=== PATIENT | female | born 1930 | race Caucasian/White ===

== ENCOUNTER 2017-04-16 20:40 | Inpatient (IN) | payer MEDICARE, OTHER, MEDICAID ==
[2017-04-16] MEDS ORDERED: Sodium Chloride 0.9% 10 ML Syringe FLUSH PRN ×2 (20:51→23:41)
--- NOTE | 2017-04-16 21:00 | EDM.PDOC ---
ED HPI GENERAL MEDICAL PROBLEM - General Chief Complaint: Cardiovascular Problem Stated Complaint: [facility] Time Seen by Provider: 04/16/17 20:46 Source of Information: Reports: Patient History Limitations: Reports: No Limitations - History of Present Illness INITIAL COMMENTS - FREE TEXT/NARRATIVE: Patient is a 86-year-old female from local alf complaining of hypoxia with laying flat. Upon admission to the ED patients on a simple mask at 6 L/m 79 % on room air. She is short of breath with no significant respiratory distress noted. Symptoms started today and progressively gotten worse. She denies any chest pain, productive cough, wheezing, developing, fever, nausea vomiting, painful urination, or any additional complaints. Of note she did fall a few days prior injuring the left lower leg. She did have x-rays obtained did not reveal any bony abnormalities. There is significant swelling present. Pain with palpation of the posterior calf. Decreased range of motion noted. She is normally on O2 NC 4lpm chronically. Patient's past medical history includes coronary disease, diabetes type 2, congestive heart failure, hypertension, GERD, hypercholesterolemia, anxiety/ depression Current medications: Unclear at this time still searching for current med list. - Related Data Allergies Allergy/AdvReac Type Severity Reaction Status Date / Time cefazolin Allergy Cannot Verified 04/17/17 00:46 Remember cefazolin sodium [From Anc] Allergy Cannot Verified 04/17/17 00:46 Remember iodine Allergy Cannot Verified 04/17/17 00:46 Remember iv dye Allergy Cannot Uncoded 12/21/13 08:46 Remember Home Meds: Home Meds Aspirin [Adult Low Dose Aspirin EC] 81 mg PO DAILY 12/21/13 [History] Ezetimibe [Zetia] 10 mg PO DAILY 12/21/13 [History] Furosemide [Lasix] 40 mg PO DAILY 12/21/13 [History] Metoprolol Tartrate 50 mg PO BID 12/21/13 [History] Sulfamethoxazole/Trimethoprim [Sulfamethoxazole-Tmp Ss Tablet] 1 each PO BID 01/27 [History] atorvaSTATin [Lipitor] 40 mg PO BEDTIME 12/21/13 [History] Lisinopril 5 mg PO DAILY #30 tablet 12/23/13 [Rx] Sertraline [Zoloft] 75 mg PO DAILY 06/03/15 [History] Acetaminophen [Acetaminophen Extra Strength] 500 mg PO Q4H PRN 04/16/17 [History ] Carboxymethylcellulose Sodium [Refresh Tears] 2 drop EYEBOTH QID 04/16/17 [ History] Cyanocobalamin (Vitamin B-12) [Cyanocobalamin Injection] 1,000 mcg IM WEEKLY 08/02 [History] Docusate Sodium/Sennosides [Senna Plus] 1 tab PO DAILY PRN 04/16/17 [History] Fish Oil/[place]-3 Fatty Acids [Fish Oil 1,000 MG] 1,000 mg PO BID 04/16/17 [ History] Mineral Oil/Petrolatum,White [Genteal Pm Ointment] 1 dose EYEBOTH BEDTIME [History] Ondansetron [Zofran ODT] 4 mg PO Q8H PRN 04/16/17 [History] Vit C/E/Zn/Coppr/Lutein/Zeaxan [Preservision Areds 2 Softgel] 1 cap PO BID 04/16 [History] Albuterol/Ipratropium [DuoNeb 3.0-0.5 MG/3 ML] 3 ml NEB Q4H PRN #1 box 04/18/17 [Rx] LORazepam [Ativan] 0.5 mg PO Q4H PRN #30 tablet 04/18/17 [Rx] Morphine [Morphine 10 MG/5 ML] 5 mg PO Q2H #120 ml 04/18/17 [Rx] Social & Family History - Tobacco Use Years of Tobacco use: 5 Used Tobacco, but Quit: Yes Month Tobacco Last Used: - Alcohol Use Days Per Week of Alcohol Use: 0 - Recreational Drug Use Recreational Drug Use: No ED ROS GENERAL - Review of Systems Review Of Systems: See Below Constitutional: Denies: Fever, Chills, Decreased Appetite HEENT: Reports: No Symptoms Respiratory: Reports: Shortness of Breath. Denies: Wheezing, Pleuritic Chest Pain, Cough, Sputum Cardiovascular: Reports: Dyspnea on Exertion. Denies: Chest Pain, Palpitations GI/Abdominal: Denies: Abdominal Pain, Constipation, Diarrhea, Nausea, Vomiting : Reports: No Symptoms Musculoskeletal: Reports: Leg Pain (Left lower leg pain), Foot Pain (Left foot) , Joint Pain (Left ankle) Skin: Reports: Other (Lower leg has faint increased redness to the anterior aspect, ecchymosis noted to the lateral aspect of the ankle and foot.) Neurological: Reports: No Symptoms ED EXAM, GENERAL - Physical Exam Exam: See Below Exam Limited By: No Limitations General Appearance: Alert, WD/WN, Mild Distress Eye Exam: Bilateral Eye: Normal Inspection Ears: Hearing Grossly Normal Nose: Normal Inspection Throat/Mouth: Normal Voice, No Airway Compromise, Other (Oral mucosa is moist) Neck: Normal Inspection, Supple Respiratory/Chest: No Accessory Muscle Use, Chest Non-Tender, Other (Increased respiratory rate, distant lung sounds, with no adventitious lung sounds present. ) Cardiovascular: Normal Peripheral Pulses, Regular Rate, Rhythm, Systolic Murmur Peripheral Pulses: 2+: Radial (L), Radial (R) GI/Abdominal: Normal Bowel Sounds, Soft, Non-Tender, No Organomegaly, No Distention Extremities: Other (Left lower leg: Increased swelling, pain with palpation, hematoma to the posterior calf, mild redness anteriorly, ecchymosis to the lateral ankle and foot. Decreased range of motion noted.) Neurological: Alert, Oriented, CN II-XII Intact, Normal Cognition, No Motor/ Sensory Deficits Psychiatric: Normal Affect, Normal Mood Skin Exam: Warm, Dry Course - Vital Signs Last Recorded V/S: Last Vital Signs Temp 97.5 F 04/17/17 23:40 Pulse 69 04/17/17 23:40 Resp 20 04/17/17 23:40 BP 131/98 H 04/17/17 23:40 Pulse Ox 90 L 04/17/17 23:40 - Orders/Labs/Meds Labs: Laboratory Tests 04/16/17 04/16/17 04/16/17 Range/Units 21:16 21:16 21:16 WBC 4.61 (3.98-10.04) K/mm3 RBC 3.81 L (3.98-5.22) M/mm3 Hgb 9.9 L (11.2-15.7) gm/L Hct 36.8 (34.1-44.9) % MCV 96.6 H (79.4-94.8) fl MCH 26.0 (25.6-32.2) pg MCHC 26.9 L (32.2-35.5) g/dl RDW Std Deviation 61.0 H (36.4-46.3) fL Plt Count 159 L (182-369) K/mm3 MPV 11.5 (9.4-12.3) fl Neut % (Auto) 71.6 H (34.0-71.1) % Lymph % (Auto) 12.8 L (19.3-51.7) % [place] % (Auto) 14.1 H (4.7-12.5) % Eos % (Auto) 1.1 (0.7-5.8) Baso % (Auto) 0.2 (0.1-1.2) % Neut # (Auto) 3.30 (1.56-6.13) K/mm3 Lymph # (Auto) 0.59 L (1.18-3.74) K/mm3 [place] # (Auto) 0.65 H (0.24-0.36) K/mm3 Eos # (Auto) 0.05 (0.04-0.36) K/mm3 Baso # (Auto) 0.01 (0.01-0.08) K/mm3 Manual Slide Review Abnormal smear PT 11.6 (8.0-13.0) SECONDS INR 1.06 APTT 26 (22-36) SECONDS D-Dimer, Quantitative (0.19-0.59) mg/L Sodium 141 (136-145) mEq/L Potassium 5.7 H (3.5-5.1) mEq/L Chloride 99 (98-107) mEq/L Carbon Dioxide 43 H* (21-32) mEq/L Anion Gap 4.7 L (5-15) BUN 38 H (7-18) mg/dL Creatinine 1.9 H (0.55-1.02) mg/dL Est Cr Clr Drug Dosing 18.35 mL/min Estimated GFR (MDRD) 25 (>60) mL/min BUN/Creatinine Ratio 20.0 H (14-18) Glucose 104 (83-115) mg/dL Calcium 8.9 (8.5-10.1) mg/dL Total Bilirubin 0.5 (0.2-1.0) mg/dL AST 26 (15-37) U/L ALT 21 (14-59) U/L Alkaline Phosphatase 84 (46-116) U/L CK-MB (CK-2) (0-3.6) ng/ml Troponin I 0.064 H* (0.00-0.056) ng/mL C-Reactive Protein < 0.2 (<1.0) mg/dL NT-Pro-B Natriuret Pep 91093 H (0-450) pg/mL Total Protein 6.3 L (6.4-8.2) g/dl Albumin 2.9 L (3.4-5.0) g/dl Globulin 3.4 gm/dL Albumin/Globulin Ratio 0.9 L (1-2) 04/16/17 04/16/17 04/16/17 Range/Units 21:16 23:58 23:58 WBC (3.98-10.04) K/mm3 RBC (3.98-5.22) M/mm3 Hgb (11.2-15.7) gm/L Hct (34.1-44.9) % MCV (79.4-94.8) fl MCH (25.6-32.2) pg MCHC (32.2-35.5) g/dl RDW Std Deviation (36.4-46.3) fL Plt Count (182-369) K/mm3 MPV (9.4-12.3) fl Neut % (Auto) (34.0-71.1) % Lymph % (Auto) (19.3-51.7) % [place] % (Auto) (4.7-12.5) % Eos % (Auto) (0.7-5.8) Baso % (Auto) (0.1-1.2) % Neut # (Auto) (1.56-6.13) K/mm3 Lymph # (Auto) (1.18-3.74) K/mm3 [place] # (Auto) (0.24-0.36) K/mm3 Eos # (Auto) (0.04-0.36) K/mm3 Baso # (Auto) (0.01-0.08) K/mm3 Manual Slide Review PT (8.0-13.0) SECONDS INR APTT (22-36) SECONDS D-Dimer, Quantitative 3.13 H (0.19-0.59) mg/L Sodium (136-145) mEq/L Potassium (3.5-5.1) mEq/L Chloride (98-107) mEq/L Carbon Dioxide (21-32) mEq/L Anion Gap (5-15) BUN (7-18) mg/dL Creatinine (0.55-1.02) mg/dL Est Cr Clr Drug Dosing mL/min Estimated GFR (MDRD) (>60) mL/min BUN/Creatinine Ratio (14-18) Glucose (83-115) mg/dL Calcium (8.5-10.1) mg/dL Total Bilirubin (0.2-1.0) mg/dL AST (15-37) U/L ALT (14-59) U/L Alkaline Phosphatase (46-116) U/L CK-MB (CK-2) 3.9 H (0-3.6) ng/ml Troponin I 0.085 H* (0.00-0.056) ng/mL C-Reactive Protein (<1.0) mg/dL NT-Pro-B Natriuret Pep (0-450) pg/mL Total Protein (6.4-8.2) g/dl Albumin (3.4-5.0) g/dl Globulin gm/dL Albumin/Globulin Ratio (1-2) Meds: Medications Discontinued Medications Generic Name Dose Route Start Last Admin Trade Name Freq PRN Reason Stop Dose Admin Acetaminophen 650 mg 04/16/17 23:41 Tylenol PO Q4H PRN Pain (Mild 1-3)/fever Hydrocodone Bitart/Acetaminophen 1 tab 04/16/17 23:41 [place] 325-5 Mg PO Q4H PRN Pain (moderate 4-6) Albuterol/Ipratropium 3 ml 04/16/17 23:46 Duoneb 3.0-0.5 Mg/3 Ml NEB Q4H PRN Shortness Of Breath/wheezing Artificial Tears 0 ml 04/17/17 09:00 04/18/17 14:53 Isopto Tears 0.5% Ophth Soln EYEBOTH Not Given QID BEBO Artificial Tears 0 gm 04/17/17 21:00 04/17/17 20:47 Artificial Tears EYEBOTH 1 applic BEDTIME BEBO Administration Aspirin 81 mg 04/17/17 09:00 04/18/17 09:33 Halfprin PO Not Given DAILY BEBO Bisacodyl 5 mg 04/16/17 23:46 Dulcolax PO DAILY PRN Constipation Diphtheria/Tetanus/Acell Pertussis 0.5 ml 04/17/17 10:00 Adacel IM 10/02/17 10:01 .ONCE ONE Docusate Sodium 100 mg 04/16/17 23:46 Colace PO BID PRN Constipation Ezetimibe 10 mg 04/17/17 09:00 04/18/17 09:33 Zetia PO Not Given DAILY BEBO Furosemide 40 mg 04/16/17 22:13 04/16/17 22:56 Lasix IVPUSH 04/16/17 22:14 Not Given NOW ONE Furosemide 80 mg 04/16/17 22:17 04/16/17 22:56 Lasix PO 04/16/17 22:18 Not Given ONETIME ONE Furosemide Confirm 04/16/17 22:28 04/16/17 22:56 Lasix Administered 04/16/17 22:29 Not Given Dose 80 mg .ROUTE .STK-MED ONE Furosemide 80 mg 04/16/17 22:55 04/16/17 22:56 Lasix IVPUSH 04/16/17 22:56 80 mg NOW ONE Administration Heparin Sodium (Porcine) 5,000 units 04/17/17 19:30 04/17/17 20:00 Heparin Sodium IV 04/17/17 19:31 Not Given ONETIME ONE Heparin Sodium (Porcine) 1,000 - 2,000 units 04/17/17 19:23 Heparin Sodium IV ASDIRECTED PRN SEE HEPARIN PROTOCOL Hydralazine HCl 10 mg 04/16/17 23:48 Apresoline IVPUSH Q4H PRN Hypertension Hydrochlorothiazide 12.5 mg 04/16/17 23:55 04/17/17 00:50 Hydrochlorothiazide PO 04/16/17 23:56 12.5 mg NOW ONE Administration Hydrochlorothiazide 12.5 mg 04/17/17 09:00 04/18/17 05:16 Hydrochlorothiazide PO Not Given BIDDIURETIC BEBO Hydromorphone HCl 0.25 mg 04/16/17 23:41 Dilaudid IVPUSH Q2H PRN Pain (severe 7-10) Promethazine HCl 12.5 mg/ 50.5 mls @ 100 mls/hr 04/16/17 23:41 Sodium Chloride IV Q6H PRN Nausea/Vomiting Furosemide 100 mg/ Sodium 100 mls @ 2 mls/hr 04/16/17 23:45 04/17/17 00:50 Chloride IV 04/18/17 21:00 2 mls/hr TITRATE BEBO Administration Protocol Heparin Sodium/Dextrose 25,000 units in 500 mls @ 20 mls/hr 04/17/17 19:00 Heparin 25,000 Units In D5w 500 Ml IV TITRATE BEBO Protocol Lorazepam 0.25 mg 04/16/17 23:41 Ativan IV Q6H PRN Anxiety Lorazepam 2 mg 04/16/17 23:48 Ativan IVPUSH Q4H PRN Seizures Lorazepam 0.5 mg 04/17/17 20:29 Ativan IV Q4H PRN Anxiety Magnesium Sulfate 0 dose 04/16/17 23:45 Pharmacy To Dose - Magnesium Replacement .XX ASDIRECTED PRN RX TO WATCH MAG LEVELS Metoprolol Tartrate 5 mg 04/16/17 23:48 Lopressor IVPUSH Q4H PRN Tachycardia Metoprolol Tartrate 50 mg 04/17/17 09:00 Lopressor PO BID BEBO Metoprolol Tartrate 25 mg 04/17/17 09:00 04/18/17 09:33 Lopressor PO Not Given BID BEBO Morphine Sulfate 1 mg 04/17/17 20:30 Morphine IVPUSH Q4H PRN Other Ondansetron HCl 4 mg 04/16/17 23:41 Zofran IV Q6H PRN Nausea/Vomiting Polyethylene Glycol 17 gm 04/16/17 23:46 Miralax PO DAILY PRN Constipation Potassium Chloride 0 dose 04/16/17 23:45 Pharmacy To Dose - Potassium Replacement .XX ASDIRECTED PRN RX TO WATCH K LEVELS Rosuvastatin Calcium 10 mg 04/17/17 21:00 04/18/17 00:00 Crestor PO Not Given BEDTIME BEBO Senna/Docusate Sodium 1 tab 04/16/17 23:46 Senna Plus PO BID PRN Constipation Sertraline HCl 75 mg 04/17/17 09:00 04/18/17 09:33 Zoloft PO Not Given DAILY BEBO Sodium Chloride 10 ml 04/16/17 20:51 04/16/17 21:23 Saline Flush FLUSH 10 ml ASDIRECTED PRN Administration Keep Vein Open Sodium Chloride 10 ml 04/16/17 23:41 Saline Flush FLUSH ASDIRECTED PRN Keep Vein Open Temazepam 7.5 mg 04/16/17 23:46 Restoril PO BEDTIME PRN Sleep - Re-Assessments/Exams Free Text/Narrative Re-Assessment/Exam: Patient is on nasal cannula 6 L/m at 96% O2 saturation. IV will be established. Initial labs and studies include CBC, chem 14, CRP, d- dimer, PTT/INR, proBNP, coag studies, troponin, chest x-ray one view, and EKG. EKG revealed: Sinus bradycardia at a rate of 56 with a right bundle branch block with no acute ST changes noted. CXR revealed: white out of the left lower lobe concerning for CHF. Right sided pleural effusion. Labs reveal: White blood cell count 4.61, hemoglobin 9.9, platelet count 159, coags within normal limits, d-dimer 3.13, sodium 141, potassium 5.7, CO2 43, AG 4.7, creatinine 1.9, glucose 104, LFTs within normal limits, troponin 0.064, CRP less than 0.2, and proBNP 12,855.. Troponin leak most likely related to the congestive heart failure. Second troponin will be obtained 3 hours from previous draw. D-dimer elevated 3.13. Ultrasound the left lower leg will be obtained. Patient has swelling to the left lower leg secondary to recent fall. Pain to the posterior calf with large hematoma Will rule out DVT. Ordered Lasix 80 mg IVP. Trevñio will be placed. MCG placed for admission. Hypoxia and exacerbation of CHF. O2 stats 100% on 6 L. This was turned down to 5 L and the patient remainder 100% . This was decreased to 4lpm. She is chronically on 4 L of O2 via nasal cannula at the alf. 1133 Ultrasound duplex left lower extremity veins: No definitive deep venous thrombosis is identified. Limited assessment of distal femoral vein and popliteal vein. 1138 Shared results of US with Dr. Andino. Patient will be [facility] to [facility] with telemetry. Admission order placed. Will hold off in obtaining CT of the chest per request of to evaluate the severity of pleural effusion. I do not believe patient will tolerate this. Departure - Departure Time of Disposition: 23:56 Disposition: Admitted As Inpatient 66 Reason for Transfer *Q: Other Condition: Fair Clinical Impression: CHF, Congestive heart failure, Hypoxia, Hyperkalemia, Carbon dioxide retention , Elevated troponin Acute exacerbation of congestive heart failure Qualifiers: Congestive heart failure type: diastolic Qualified Code(s): I50.33 - Acute on chronic diastolic (congestive) heart failure Chronic renal failure Qualifiers: Chronic kidney disease stage: unspecified stage Qualified Code(s): N18.9 - Chronic kidney disease, unspecified
[2017-04-16] MEDS ORDERED: Furosemide 40 MG/4 ML VIAL IVPUSH ONE ×2 (22:13→22:55)
[2017-04-16] MEDS ORDERED: Furosemide 80 MG Tab PO ONE (22:17)
[2017-04-16] MEDS ORDERED: Furosemide 40 MG/4 ML VIAL ONE (22:28)
[2017-04-16] MEDS ORDERED: LORazepam 2 MG/ML MDV IV PRN (23:41)
[2017-04-16] MEDS ORDERED: HYDROmorphone 0.5 MG/0.5 ML Syringe IVPUSH PRN (23:41)
[2017-04-16] MEDS ORDERED: Ondansetron 4 MG/2 ML SDV IV PRN (23:41)
[2017-04-16] MEDS ORDERED: Acetaminophen/HYDROcodone 325-5 MG Tab PO PRN (23:41)
[2017-04-16] MEDS ORDERED: Promethazine 12.5 MG in Sodium Chloride 0.9% 50 ML IV PRN (23:41)
[2017-04-16] MEDS ORDERED: Acetaminophen 325 MG Tab PO PRN (23:41)
[2017-04-16] MEDS ORDERED: Furosemide 100 MG in Sodium Chloride 0.9% 90 ML IV SCH (23:45)
[2017-04-16] MEDS ORDERED: Polyethylene Glycol 3350 Powder 17 GM Packet PO PRN (23:46)
[2017-04-16] MEDS ORDERED: Albuterol/Ipratropium 3.0-0.5 MG/3 ML Neb Soln NEB PRN (23:46)
[2017-04-16] MEDS ORDERED: Docusate Sodium 100 MG Cap PO PRN (23:46)
[2017-04-16] MEDS ORDERED: Bisacodyl 5 MG Tab PO PRN (23:46)
[2017-04-16] MEDS ORDERED: Temazepam 7.5 MG Cap PO PRN (23:46)
[2017-04-16] MEDS ORDERED: hydrALAZINE 20 MG/ML SDV IVPUSH PRN (23:48)
[2017-04-16] MEDS ORDERED: LORazepam 2 MG/ML MDV IVPUSH PRN (23:48)
[2017-04-16] MEDS ORDERED: Metoprolol Tartrate 5 MG/5 ML SDV IVPUSH PRN (23:48)
--- NOTE | 2017-04-16 23:54 | PCM.HP ---
H&P History of Present Illness - General Date of Service: 04/16/17 Admit Problem/Dx: Admission Diagnosis/Problem Admission Diagnosis/Problem CHF, Congestive heart failure Source of Information: Patient, Old Records, Provider, RN Notes Reviewed History Limitations: Reports: Respiratory Distress - History of Present Illness Initial Comments - Free Text/Narative: This is an 86-year-old elderly white female with past medical history of coronary artery disease started status post stent placement 2, hypertension, hyperlipidemia, GERD, osteoarthritis/DJD, and chronic anemia, who [facility] with complaints of severe shortness of breath and difficulty laying flat. Her symptoms started today and has progressively gotten worse. She denies any chest pain, no cough, no wheezing , no fever or chills, and no other associated symptoms. Patient carries a history of COPD and chronic respiratory failure on 3-4 L supplemental O2. She denies any recent changes on her home medications. She has been compliant with her supplemental O2. Patient reports recent fall prior to left lower leg complaints. She reports edema, erythema, pain with palpation along with decrease range of motion. Her most recent hospitalization with similar presentation was way back in 2013. On presentation to the emergency department, she was on 6 L simple face mask and was found sating at 79%. She appears tachypneic with respiratory rate as high as 21. Her initial workup in the emergency department shows a CBC remarkable for RBC of 3.81, hemoglobin of 9.1, MCV of 96.6, MCHC of 26.9, RDW of 61, platelet of 159, neutrophils of 71.6%, lymphocytes of 12.8%, and monocytes of 14.1%. Her d-dimer level is at 3.13. Her chemistry is remarkable for potassium 5.7, carbon dioxide of 43, anion gap of 4.7, BUN of 38, creatinine of 1.9, troponin 1 of 0.064, [place] [address], total protein of 6.3, and albumin of 2.9. Her chest x-ray shows blunting of costophrenic angles, pulmonary congestion, bilateral pleural effusion, and significant aortic calcification. Patient is being admitted primarily for medical management of acute on chronic respiratory failure and acute on chronic heart failure. She is DNR. - Related Data Allergies/Adverse Reactions: Allergies Allergy/AdvReac Type Severity Reaction Status Date / Time cefazolin Allergy Cannot Verified 04/17/17 00:46 Remember cefazolin sodium [From Ancef] Allergy Cannot Verified 04/17/17 00:46 Remember iodine Allergy Cannot Verified 04/17/17 00:46 Remember iv dye Allergy Cannot Uncoded 12/21/13 08:46 Remember Home Medications: Home Meds Aspirin [Adult Low Dose Aspirin EC] 81 mg PO DAILY 12/21/13 [History] Ezetimibe [Zetia] 10 mg PO DAILY 12/21/13 [History] Furosemide [Lasix] 40 mg PO DAILY 12/21/13 [History] Metoprolol Tartrate 50 mg PO BID 12/21/13 [History] Sulfamethoxazole/Trimethoprim [Sulfamethoxazole-Tmp Ss Tablet] 1 each PO BID 01/27 [History] atorvaSTATin [Lipitor] 40 mg PO BEDTIME 12/21/13 [History] Lisinopril 5 mg PO DAILY #30 tablet 12/23/13 [Rx] Sertraline [Zoloft] 75 mg PO DAILY 06/03/15 [History] Acetaminophen [Acetaminophen Extra Strength] 500 mg PO Q4H PRN 04/16/17 [History ] Carboxymethylcellulose Sodium [Refresh Tears] 2 drop EYEBOTH QID 04/16/17 [ History] Cyanocobalamin (Vitamin B-12) [Cyanocobalamin Injection] 1,000 mcg IM WEEKLY 08/02 [History] Docusate Sodium/Sennosides [Senna Plus] 1 tab PO DAILY PRN 04/16/17 [History] Fish Oil/Drumright-3 Fatty Acids [Fish Oil 1,000 MG] 1,000 mg PO BID 04/16/17 [ History] Mineral Oil/Petrolatum,White [Genteal Pm Ointment] 1 dose EYEBOTH BEDTIME [History] Ondansetron [Zofran ODT] 4 mg PO Q8H PRN 04/16/17 [History] Vit C/E/Zn/Coppr/Lutein/Zeaxan [Preservision Areds 2 Softgel] 1 cap PO BID 04/16 [History] Past Medical History HEENT History: Reports: Macular Degeneration, Other (See Below) Other HEENT History: hypertensive retinopathy Cardiovascular History: Reports: High Cholesterol, Hypertension, Other (See Below) Other Cardiovascular History: peripheral vascular disease;ishemic heart disease Respiratory History: Reports: COPD, Other (See Below) Other Respiratory History: respiratory failure Gastrointestinal History: Reports: GERD Musculoskeletal History: Reports: Osteoarthritis Psychiatric History: Reports: Depression Hematologic History: Reports: Anemia Social & Family History - Tobacco Use Smoking Status *Q: Never Smoker Years of Tobacco use: 5 Used Tobacco, but Quit: Yes Month Tobacco Last Used: - Caffeine Use Caffeine Use: Reports: Coffee - Alcohol Use Days Per Week of Alcohol Use: 0 - Recreational Drug Use Recreational Drug Use: No H&P Review of Systems - Review of Systems: Review Of Systems: See Below General: Denies: Fever, Chills, Fatigue, Decreased Appetite HEENT: Reports: No Symptoms Pulmonary: Reports: Shortness of Breath. Denies: Wheezing, Pleuritic Chest Pain , Cough Cardiovascular: Reports: Dyspnea on Exertion, Edema. Denies: Chest Pain, Lightheadedness, Syncope Gastrointestinal: Denies: Abdominal Pain, Constipation, Diarrhea, Nausea, Vomiting Genitourinary: Reports: No Symptoms Musculoskeletal: Reports: Leg Pain (left lower leg), Foot Pain (left), Joint Pain (left ankle) Skin: Reports: Bruising (on lateral aspect of the ankle and foot), Change in Color (mild erythema on anterior aspect of left lower leg) Psychiatric: Denies: Confusion, Anxiety, Agitation, Hallucinations Neurological: Reports: Gait Disturbance. Denies: Confusion, Weakness Hematologic/Lymphatic: Reports: Anemia, Easy Bruising. Denies: Easy Bleeding Immunologic: Reports: No Symptoms Exam - Exam Exam: See Below - Vital Signs Vital Signs: Last Vital Signs Temp 36.1 C 04/16/17 20:47 Pulse 57 L 04/16/17 20:47 Resp 21 H 04/16/17 20:47 BP 113/71 04/16/17 20:47 Pulse Ox 99 04/16/17 20:47 Weight: 86.183 kg - Exam General: Alert, Cooperative, Mild Distress HEENT: Conjunctiva Clear, Hearing Intact, Mucosa Moist & [place], Nares Patent, Normal Nasal Septum, Pupils Equal, Pupils Reactive Neck: Supple, Trachea Midline, Full Range of Motion, JVD, Other (No accessory muscle use) Lungs: Decreased Breath Sounds, Other ([place] to percussion ). No: Normal Respiratory Effort Cardiovascular: Regular Rate, Regular Rhythm, Systolic Murmur GI/Abdominal Exam: Normal Bowel Sounds, Soft, Non-Tender, No Organomegaly, No Distention (Female) Exam: Other (indwelling esquivel catheter) Rectal (Female) Exam: Deferred Back Exam: Normal Inspection, Decreased Range of Motion Extremities: Limited Range of Motion, Increased Warmth, Other (Left Lower leg: edema, erythema on anterior aspect, pain with palpation, ecchymosis on lateral ankle and foot, and hematoma on posterior calf). No: Normal Inspection, [place] s Sign Skin: Warm, Dry, Intact, Ecchymosis Skin Alteration Location (Drawings Not To Scale): 1 - ecchymosis 2 - Hematoma 3 - mild eryhthema Neuro Extensive - Mental Status: Oriented x3, Normal Cognition, Memory Intact Neuro Extensive - Motor, Sensory, Reflexes: CN II-XII Intact (very limited but grossly intact), Abnormal Gait Psychiatric: Alert, Normal Affect, Normal Mood - Patient Data Lab Results Last 24 hrs: Laboratory Results - last 24 hr 04/16/17 04/16/17 04/16/17 Range/Units 21:16 21:16 21:16 WBC 4.61 (3.98-10.04) K/mm3 RBC 3.81 L (3.98-5.22) M/mm3 Hgb 9.9 L (11.2-15.7) gm/L Hct 36.8 (34.1-44.9) % MCV 96.6 H (79.4-94.8) fl MCH 26.0 (25.6-32.2) pg MCHC 26.9 L (32.2-35.5) g/dl RDW Std Deviation 61.0 H (36.4-46.3) fL Plt Count 159 L (182-369) K/mm3 MPV 11.5 (9.4-12.3) fl Neut % (Auto) 71.6 H (34.0-71.1) % Lymph % (Auto) 12.8 L (19.3-51.7) % [place] % (Auto) 14.1 H (4.7-12.5) % Eos % (Auto) 1.1 (0.7-5.8) Baso % (Auto) 0.2 (0.1-1.2) % Neut # (Auto) 3.30 (1.56-6.13) K/mm3 Lymph # (Auto) 0.59 L (1.18-3.74) K/mm3 [place] # (Auto) 0.65 H (0.24-0.36) K/mm3 Eos # (Auto) 0.05 (0.04-0.36) K/mm3 Baso # (Auto) 0.01 (0.01-0.08) K/mm3 Manual Slide Review Abnormal smear PT 11.6 (8.0-13.0) SECONDS INR 1.06 APTT 26 (22-36) SECONDS D-Dimer, Quantitative (0.19-0.59) mg/L Sodium 141 (136-145) mEq/L Potassium 5.7 H (3.5-5.1) mEq/L Chloride 99 (98-107) mEq/L Carbon Dioxide 43 H* (21-32) mEq/L Anion Gap 4.7 L (5-15) BUN 38 H (7-18) mg/dL Creatinine 1.9 H (0.55-1.02) mg/dL Est Cr Clr Drug Dosing 18.35 mL/min Estimated GFR (MDRD) 25 (>60) mL/min BUN/Creatinine Ratio 20.0 H (14-18) Glucose 104 (83-115) mg/dL Calcium 8.9 (8.5-10.1) mg/dL Total Bilirubin 0.5 (0.2-1.0) mg/dL AST 26 (15-37) U/L ALT 21 (14-59) U/L Alkaline Phosphatase 84 (46-116) U/L Troponin I 0.064 H* (0.00-0.056) ng/mL C-Reactive Protein < 0.2 (<1.0) mg/dL NT-Pro-B Natriuret Pep 66364 H (0-450) pg/mL Total Protein 6.3 L (6.4-8.2) g/dl Albumin 2.9 L (3.4-5.0) g/dl Globulin 3.4 gm/dL Albumin/Globulin Ratio 0.9 L (1-2) 10/01/17 Range/Units 21:16 WBC (3.98-10.04) K/mm3 RBC (3.98-5.22) M/mm3 Hgb (11.2-15.7) gm/L Hct (34.1-44.9) % MCV (79.4-94.8) fl MCH (25.6-32.2) pg MCHC (32.2-35.5) g/dl RDW Std Deviation (36.4-46.3) fL Plt Count (182-369) K/mm3 MPV (9.4-12.3) fl Neut % (Auto) (34.0-71.1) % Lymph % (Auto) (19.3-51.7) % [place] % (Auto) (4.7-12.5) % Eos % (Auto) (0.7-5.8) Baso % (Auto) (0.1-1.2) % Neut # (Auto) (1.56-6.13) K/mm3 Lymph # (Auto) (1.18-3.74) K/mm3 [place] # (Auto) (0.24-0.36) K/mm3 Eos # (Auto) (0.04-0.36) K/mm3 Baso # (Auto) (0.01-0.08) K/mm3 Manual Slide Review PT (8.0-13.0) SECONDS INR APTT (22-36) SECONDS D-Dimer, Quantitative 3.13 H (0.19-0.59) mg/L Sodium (136-145) mEq/L Potassium (3.5-5.1) mEq/L Chloride (98-107) mEq/L Carbon Dioxide (21-32) mEq/L Anion Gap (5-15) BUN (7-18) mg/dL Creatinine (0.55-1.02) mg/dL Est Cr Clr Drug Dosing mL/min Estimated GFR (MDRD) (>60) mL/min BUN/Creatinine Ratio (14-18) Glucose (83-115) mg/dL Calcium (8.5-10.1) mg/dL Total Bilirubin (0.2-1.0) mg/dL AST (15-37) U/L ALT (14-59) U/L Alkaline Phosphatase (46-116) U/L Troponin I (0.00-0.056) ng/mL C-Reactive Protein (<1.0) mg/dL NT-Pro-B Natriuret Pep (0-450) pg/mL Total Protein (6.4-8.2) g/dl Albumin (3.4-5.0) g/dl Globulin gm/dL Albumin/Globulin Ratio (1-2) Result Diagrams: 04/17/17 06:00 04/17/17 06:00 EKG INTERPRETATION EKG Date: 04/16/17 Rhythm: Other (Sinus Gregory cardia) Rate (Beats/Min): 56 QRS: RBBB EKG Interpretation Comments: No Acute ST-T wave changes *Q Meaningful Use (ADM) - VTE *Q VTE Criteria *Q: - Stroke *Q Stroke Criteria *Q: - AMI *Q AMI Criteria *Q: Problem List Initiated/Reviewed/Updated: Yes Orders Last 24hrs: Active Orders 24 hr Category Date Time Status Admission Status [Patient Status] [ADT] Routine ADT 04/16/17 23:51 Active Antiembolic Devices [RC] PER UNIT ROUTINE Care 04/16/17 23:46 Ordered Cardiac Monitoring [RC] . DIRECTED Care 04/16/17 23:51 Active Cardiac Monitoring [RC] CONTINUOUS Care 04/16/17 23:43 Ordered EKG Documentation Completion [RC] STAT Care 04/16/17 20:52 Active Esquivel Catheter Insertion [Insert Urinary Catheter] [OM. Care 04/16/17 22:15 Ordered PC] Q24H Height and Weight [RC] DAILY Care 04/16/17 23:41 Ordered Intake and Output [RC] QSHIFT Care 04/16/17 23:43 Ordered Oxygen Therapy [RC] PRN Care 04/16/17 23:42 Ordered Oxygen Therapy [RC] PRN Care 04/16/17 23:46 Ordered Peripheral IV Care [RC] . DIRECTED Care 04/16/17 20:51 Active Pulse Oximetry [RC] PRN Care 04/16/17 23:43 Ordered RT Aerosol Therapy [RC] ASDIRECTED Care 04/16/17 23:47 Ordered Up With Assistance [RC] ASDIRECTED Care 04/16/17 23:41 Ordered Up ad Amber [RC] ASDIRECTED Care 04/16/17 23:41 Ordered Urinary Catheter Assessment [RC] ASDIRECTED Care 04/16/17 22:17 Active VTE/DVT Education [RC] PER UNIT ROUTINE Care 04/16/17 23:42 Ordered VTE/DVT Education [RC] PER UNIT ROUTINE Care 04/16/17 23:46 Ordered Vital Signs [RC] Q4H Care 04/16/17 23:42 Ordered Vital Signs [RC] Q4H Care 04/16/17 23:46 Ordered Consult to Case Management [CONS] Routine Cons 04/16/17 23:47 Ordered Consult to Grooving Lathe Tender [CONS] Routine Cons 04/16/17 23:47 Ordered Consult to Spiritual Care [CONS] Routine Cons 04/16/17 23:47 Ordered OT Evaluation and Treatment [CONS] Routine Cons 04/16/17 23:47 Ordered PT Evaluation and Treatment [CONS] Routine Cons 04/16/17 23:47 Ordered Respiratory Care Assess and Treatment [CONS] Routine Cons 04/16/17 23:47 Ordered 2 Gram Sodium Diet [DIET] Diet 04/16/17 Dinner Ordered Heart Healthy Diet [DIET] Diet 04/16/17 Dinner Active CXR [Chest 1V Frontal] [CR] Stat Exams 04/16/17 20:50 Taken VL Duplex Lwr Ext Veins Ltd Lt [US] Stat Exams 04/16/17 22:15 Taken BASIC METABOLIC PANEL,BMP [CHEM] AM Lab 04/17/17 05:11 Ordered BASIC METABOLIC PANEL,BMP [CHEM] AM Lab 04/18/17 05:11 Ordered BASIC METABOLIC PANEL,BMP [CHEM] AM Lab 04/19/17 05:11 Ordered CBC WITH AUTO DIFF [HEME] AM Lab 04/17/17 05:11 Ordered CBC WITH AUTO DIFF [HEME] AM Lab 04/18/17 05:11 Ordered CBC WITH AUTO DIFF [HEME] AM Lab 04/19/17 05:11 Ordered CKMB [CHEM] AM Lab 04/17/17 05:11 Ordered CKMB [CHEM] Stat Lab 04/16/17 23:47 Ordered MAGNESIUM [CHEM] AM Lab 04/17/17 05:11 Ordered MAGNESIUM [CHEM] AM Lab 04/18/17 05:11 Ordered MAGNESIUM [CHEM] AM Lab 04/19/17 05:11 Ordered TROPONIN I [CHEM] AM Lab 04/17/17 05:11 Ordered TROPONIN I [CHEM] Stat Lab 04/16/17 22:18 Ordered Acetaminophen [Tylenol] Med 04/16/17 23:41 Ordered 650 mg PO Q4H PRN Acetaminophen/HYDROcodone [Benedict 325-5 MG] Med 04/16/17 23:41 Ordered 1 tab PO Q4H PRN Albuterol/Ipratropium [DuoNeb 3.0-0.5 MG/3 ML] Med 04/16/17 23:46 Ordered 3 ml NEB Q4H PRN Aspirin [Halfprin] Med 04/17/17 09:00 Ordered 81 mg PO DAILY Bisacodyl [Dulcolax] Med 04/16/17 23:46 Ordered 5 mg PO DAILY PRN Carboxymethylcellulose Sodium Med 04/17/17 09:00 Ordered 2 drop EYEBOTH QID Docusate Sodium [Colace] Med 04/16/17 23:46 Ordered 100 mg PO BID PRN Docusate Sodium/Sennosides [Senna Plus] Med 04/16/17 23:46 Ordered 1 tab PO BID PRN Ezetimibe [Zetia] Med 04/17/17 09:00 Ordered 10 mg PO DAILY HYDROmorphone [Dilaudid] Med 04/16/17 23:41 Ordered 0.25 mg IVPUSH Q2H PRN LORazepam [Ativan] Med 04/16/17 23:41 Ordered 0.25 mg IV Q6H PRN LORazepam [Ativan] Med 04/16/17 23:48 Active 2 mg IVPUSH Q4H PRN Magnesium Rep Pharmacy to Dose [Pharmacy to Dose - Med 04/16/17 23:45 Ordered Magnesium Replacement] 1 dose .XX ASDIRECTED Metoprolol Tartrate [Lopressor] Med 04/16/17 23:48 Active 5 mg IVPUSH Q4H PRN Metoprolol Tartrate [Lopressor] Med 04/17/17 09:00 Ordered 50 mg PO BID Mineral Oil/Petrolatum,White [Genteal Pm Ointment] Med 04/17/17 21:00 Ordered 1 dose EYEBOTH BEDTIME Ondansetron [Zofran] Med 04/16/17 23:41 Ordered 4 mg IV Q6H PRN Polyethylene Glycol 3350 [MiraLAX] Med 04/16/17 23:46 Ordered 17 gm PO DAILY PRN Potassium Rep Pharmacy to Dose [Pharmacy to Dose - Med 04/16/17 23:45 Ordered Potassium Replacement] 1 dose .XX ASDIRECTED Promethazine [Phenergan] 12.5 mg Med 04/16/17 23:41 Ordered Sodium Chloride 0.9% [Normal Saline] 50 ml IV Q6H Sertraline [Zoloft] Med 04/17/17 09:00 Ordered 75 mg PO DAILY Sodium Chloride 0.9% [Saline Flush] Med 04/16/17 20:51 Active 10 ml FLUSH ASDIRECTED PRN Sodium Chloride 0.9% [Saline Flush] Med 04/16/17 23:41 Ordered 10 ml FLUSH ASDIRECTED PRN Temazepam [Restoril] Med 04/16/17 23:46 Ordered 7.5 mg PO BEDTIME PRN atorvaSTATin [Lipitor] Med 04/17/17 21:00 Ordered 40 mg PO BEDTIME hydrALAZINE [Apresoline] Med 04/16/17 23:48 Active 10 mg IVPUSH Q4H PRN Peripheral IV Insertion Adult [OM.PC] Stat Oth 04/16/17 20:51 Ordered Saline Lock Insert [OM.PC] Routine Oth 04/16/17 23:41 Ordered Sequential Compression Device [OM.PC] Per Unit Routine Oth 04/16/17 23:45 Ordered Resuscitation Status Routine Resus Stat 04/16/17 23:41 Ordered Medication Orders Acetaminophen (Tylenol) 650 mg PO Q4H PRN PRN Reason: Pain (Mild 1-3)/fever Hydrocodone Bitart/Acetaminophen (Benedict 325-5 Mg) 1 tab PO Q4H PRN PRN Reason: Pain (moderate 4-6) Albuterol/Ipratropium (Duoneb 3.0-0.5 Mg/3 Ml) 3 ml NEB Q4H PRN PRN Reason: Shortness Of Breath/wheezing Aspirin (Halfprin) 81 mg PO DAILY [facility] Bisacodyl (Dulcolax) 5 mg PO DAILY PRN PRN Reason: Constipation Docusate Sodium (Colace) 100 mg PO BID PRN PRN Reason: Constipation Ezetimibe (Zetia) 10 mg PO DAILY [facility] Hydralazine HCl (Apresoline) 10 mg IVPUSH Q4H PRN PRN Reason: Hypertension Hydromorphone HCl (Dilaudid) 0.25 mg IVPUSH Q2H PRN PRN Reason: Pain (severe 7-10) Promethazine HCl 12.5 mg/ (Sodium Chloride) 50.5 mls @ 100 mls/hr IV Q6H PRN PRN Reason: Nausea/Vomiting Lorazepam (Ativan) 0.25 mg IV Q6H PRN PRN Reason: Anxiety Lorazepam (Ativan) 2 mg IVPUSH Q4H PRN PRN Reason: Seizures Magnesium Sulfate (Pharmacy To Dose - Magnesium Replacement) 1 dose .XX ASDIRECTED [facility] Metoprolol Tartrate (Lopressor) 5 mg IVPUSH Q4H PRN PRN Reason: Tachycardia Metoprolol Tartrate (Lopressor) 50 mg PO BID [facility] Non-Formulary Medication (Atorvastatin [Lipitor]) 40 mg PO BEDTIME [facility] Non-Formulary Medication (Carboxymethylcellulose Sodium) 2 drop EYEBOTH QID [facility] Non-Formulary Medication (Mineral Oil/Petrolatum,White [Genteal Pm Ointment]) 1 dose EYEBOTH BEDTIME [facility] Ondansetron HCl (Zofran) 4 mg IV Q6H PRN PRN Reason: Nausea/Vomiting Polyethylene Glycol (Miralax) 17 gm PO DAILY PRN PRN Reason: Constipation Potassium Chloride (Pharmacy To Dose - Potassium Replacement) 1 dose .XX ASDIRECTED [facility] Senna/Docusate Sodium (Senna Plus) 1 tab PO BID PRN PRN Reason: Constipation Sertraline HCl (Zoloft) 75 mg PO DAILY [facility] Sodium Chloride (Saline Flush) 10 ml FLUSH ASDIRECTED PRN PRN Reason: Keep Vein Open Last Admin: 04/16/17 21:23 Dose: 10 ml Sodium Chloride (Saline Flush) 10 ml FLUSH ASDIRECTED PRN PRN Reason: Keep Vein Open Temazepam (Restoril) 7.5 mg PO BEDTIME PRN PRN Reason: Sleep Assessment/Plan Comment:: Assessment/Plan: Acute: Respiratory Failure - Acute on Chronic - 2/2 Combined Hypercapneic and Hypoxemic - She has hx/o COPD and HF with Unknown EF - She has 4L NC baseline supplemental O2 - She was on 6L simple mask on presentation to ED sating at 79% - Tachypneic with RR of 21 - Supplemental O2 and Routine RT Care - ABG: Ph 7.33, pCO2 of 84.6, pO2 of 72, HCO3 of 43 and O2 sat of 91.2% - Serial CXR Heart Failure with Unknown EF - Acute on Chronic - Likely 2/2 Volume Overload - We have no baseline 2D echo on file; [place] [address], repeat level in AM - CXR: Blunting of Costophrenic Angles; B/L Pleural Effusion; Pulmonary Vascular Congestion; Aortic Calcification and Possible Elevated Michael-diaphragm - Clinical signs of volume overload: Shortness of Breath requiring more amount of O2, Pleural Effusions and Peripheral Edema - HF Protocol: IV lasix drip, oral hctz, salt/fluid restriction, daily weights and 2D echo in AM Bilateral Pleural Effusion-Pending final report from radiology - 2/2 HH with unknown EF - Consider CT scan in AM - Lasix drip and will offer therapeutic thoracentesis in AM - Serial CXR Elevated D-Dimer - 3.13 - Likely 2/2 above; Cannot r/o PE - CTA contraindicated due to ROXI vs CKD - Consider V/Q scan in AM Hyperkalemia - K 5.7 - Likely 2/2 extracellular loss - She has received lasix - Monitor ROXI vs CKD - 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); 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) - BUN 38/Cr 1.9 - Avoid Nephrotoxic agent if all possible - Renal U/S to r/o Obstructive Uropathy - careful balance with fluids; she is currently in heart failure Slightly Elevated Troponin Level - Likely from HF; Cannot r/o ACS - EKG: Sinus Gregory with HR 56; RB3 and No acute ST-T wave changes - CE x 2 in AM and noon, Repeat EKG in AM - Continue BB, ASA and Statin Left Lower Extremity Edema - S/p Fall-recent - Associated with posterior calf hematoma - Duplex U/S negative for DVT - Monitor Sinus Bradycardia - Decreased home dose Metoprolol dose to 25 mg po BID - Already on Telemetry - Will put parameter on above medications Chronic: HTN HLD CAD S/p Stent x2 GERD OA/DJD Anemia, Hgb is 9.9, she is at baseline Plan: Admit to Med-Surg with Tele Routine AM Labs Resume Some Home Meds PT/OT/RT consult Fall Precautions CM/SW for d/c planning Additional orders as above Code status: DNR
[2017-04-16] MEDS ORDERED: Hydrochlorothiazide 12.5 MG Cap PO ONE (23:55)
[2017-04-17] MEDS: Sertraline 50 MG Tab PO SCH (08:12)
[2017-04-17] MEDS: Hypromellose 0.5% Ophth Soln 15 ML Bottle EYEBOTH SCH ×4 (08:12→20:47)
[2017-04-17] MEDS: Hydrochlorothiazide 12.5 MG Cap PO SCH ×2 (08:13→14:28)
[2017-04-17] MEDS: Aspirin 81 MG Tab.EC PO SCH (08:13)
[2017-04-17] MEDS: Ezetimibe 10 MG Tab PO SCH (08:13)
[2017-04-17] MEDS: Metoprolol Tartrate 50 MG Tab PO SCH (08:14)
[2017-04-17] MEDS ORDERED: Metoprolol Tartrate 50 MG Tab PO SCH (09:00)
[2017-04-17] MEDS ORDERED: Diphtheria,Pertussis(Acell),Tetanus Vaccine 0.5 ML SDV IM ONE (10:00)
[2017-04-17] MEDS ORDERED: FLU Vacc TS 2017-18 (65yr UP)/PF 180 MCG/0.5 ML Syringe IM ONE (10:00)
--- NOTE | 2017-04-17 12:08 | PCM.PN ---
<Libby Powell - Last Filed: 04/17/17 12:21> - General Info Date of Service: 04/17/17 Functional Status: Reports: Pain Controlled - Review of Systems General: Reports: No Symptoms HEENT: Reports: No Symptoms Pulmonary: Reports: Shortness of Breath (Improved from yesterday). Denies: Cough Cardiovascular: Reports: No Symptoms. Denies: Chest Pain Gastrointestinal: Reports: No Symptoms Genitourinary: Reports: No Symptoms Musculoskeletal: Reports: Leg Pain (left leg posterior), Other (swelling in left leg) Skin: Reports: Bruising (bruising over left leg posterior and lateral surface of foot) Neurological: Reports: No Symptoms Psychiatric: Reports: No Symptoms Systems Review Comment:: She states that she feels like she is breathing a little better than yesterday. She says her left leg hurts, which she attributes to a fall from her wheelchair a few weeks ago. She says she is not having chest pain. She is not coughing. - Patient Data Vitals - Most Recent: Last Vital Signs Temp 97.3 F 04/17/17 08:09 Pulse 76 04/17/17 08:14 Resp 16 04/17/17 08:09 BP 143/54 H 04/17/17 08:14 Pulse Ox 92 L 04/17/17 10:55 Weight - Most Recent: 84.55 kg I&O - Last 24 Hours: Intake & Output 04/16/17 04/17/17 04/17/17 22:59 06:59 14:59 Intake Total 157 150 Output Total 1375 300 Balance -1218 -150 Lab Results Last 24 Hours: Laboratory Results - last 24 hr 04/17/17 04/17/17 04/17/17 Range/Units 00:10 02:05 06:00 WBC 4.14 (3.98-10.04) K/mm3 RBC 3.97 L (3.98-5.22) M/mm3 Hgb 10.2 L (11.2-15.7) gm/L Hct 38.1 (34.1-44.9) % MCV 96.0 H (79.4-94.8) fl MCH 25.7 (25.6-32.2) pg MCHC 26.8 L (32.2-35.5) g/dl RDW Std Deviation 61.3 H (36.4-46.3) fL Plt Count 162 L (182-369) K/mm3 MPV 12.4 H (9.4-12.3) fl Neut % (Auto) 69.4 (34.0-71.1) % Lymph % (Auto) 16.4 L (19.3-51.7) % [place] % (Auto) 12.8 H (4.7-12.5) % Eos % (Auto) 1.2 (0.7-5.8) Baso % (Auto) 0.2 (0.1-1.2) % Neut # (Auto) 2.87 (1.56-6.13) K/mm3 Lymph # (Auto) 0.68 L (1.18-3.74) K/mm3 [place] # (Auto) 0.53 H (0.24-0.36) K/mm3 Eos # (Auto) 0.05 (0.04-0.36) K/mm3 Baso # (Auto) 0.01 (0.01-0.08) K/mm3 Manual Slide Review Abnormal smear Puncture Site Rt brachial ABG pH 7.33 L (7.35-7.45) ABG pCO2 84.6 H* (35.0-45.0) mmHg ABG pO2 72.0 L (80.0-100.0) mmHg ABG HCO3 43.0 H (22.0-26.0) meq/L ABG O2 Saturation 91.2 L (96.0-97.0) % ABG Base Excess 14.5 H (-2-2.0) A-a Gradient 53 mmHg O2 Delivery Device Cannula Oxygen Flow Rate 4.0 FiO2 36.00 (21.00-100.00) % Sodium (136-145) mEq/L Potassium (3.5-5.1) mEq/L Chloride (98-107) mEq/L Carbon Dioxide (21-32) mEq/L Anion Gap (5-15) BUN (7-18) mg/dL Creatinine (0.55-1.02) mg/dL Est Cr Clr Drug Dosing mL/min Estimated GFR (MDRD) (>60) mL/min BUN/Creatinine Ratio (14-18) Glucose (83-115) mg/dL Calcium (8.5-10.1) mg/dL Magnesium (1.8-2.4) mg/dl CK-MB (CK-2) (0-3.6) ng/ml Troponin I (0.00-0.056) ng/mL NT-Pro-B Natriuret Pep (0-450) pg/mL MRSA (PCR) Negative 04/17/17 Range/Units 06:00 WBC (3.98-10.04) K/mm3 RBC (3.98-5.22) M/mm3 Hgb (11.2-15.7) gm/L Hct (34.1-44.9) % MCV (79.4-94.8) fl MCH (25.6-32.2) pg MCHC (32.2-35.5) g/dl RDW Std Deviation (36.4-46.3) fL Plt Count (182-369) K/mm3 MPV (9.4-12.3) fl Neut % (Auto) (34.0-71.1) % Lymph % (Auto) (19.3-51.7) % [place] % (Auto) (4.7-12.5) % Eos % (Auto) (0.7-5.8) Baso % (Auto) (0.1-1.2) % Neut # (Auto) (1.56-6.13) K/mm3 Lymph # (Auto) (1.18-3.74) K/mm3 [place] # (Auto) (0.24-0.36) K/mm3 Eos # (Auto) (0.04-0.36) K/mm3 Baso # (Auto) (0.01-0.08) K/mm3 Manual Slide Review Puncture Site ABG pH (7.35-7.45) ABG pCO2 (35.0-45.0) mmHg ABG pO2 (80.0-100.0) mmHg ABG HCO3 (22.0-26.0) meq/L ABG O2 Saturation (96.0-97.0) % ABG Base Excess (-2-2.0) A-a Gradient mmHg O2 Delivery Device Oxygen Flow Rate FiO2 (21.00-100.00) % Sodium 139 (136-145) mEq/L Potassium 4.8 (3.5-5.1) mEq/L Chloride 97 L (98-107) mEq/L Carbon Dioxide 43 H* (21-32) mEq/L Anion Gap 3.8 L (5-15) BUN 42 H (7-18) mg/dL Creatinine 1.9 H (0.55-1.02) mg/dL Est Cr Clr Drug Dosing 18.35 mL/min Estimated GFR (MDRD) 25 (>60) mL/min BUN/Creatinine Ratio 22.1 H (14-18) Glucose 88 (83-115) mg/dL Calcium 8.8 (8.5-10.1) mg/dL Magnesium 1.8 (1.8-2.4) mg/dl CK-MB (CK-2) 4.2 H (0-3.6) ng/ml Troponin I 0.085 H* (0.00-0.056) ng/mL NT-Pro-B Natriuret Pep 13036 H (0-450) pg/mL MRSA (PCR) Med Orders - Current: Current Medications Acetaminophen (Tylenol) 650 mg PO Q4H PRN PRN Reason: Pain (Mild 1-3)/fever Hydrocodone Bitart/Acetaminophen ([place] 325-5 Mg) 1 tab PO Q4H PRN PRN Reason: Pain (moderate 4-6) Albuterol/Ipratropium (Duoneb 3.0-0.5 Mg/3 Ml) 3 ml NEB Q4H PRN PRN Reason: Shortness Of Breath/wheezing Artificial Tears (Isopto Tears 0.5% Ophth Soln) 0 ml EYEBOTH QID [facility] Last Admin: 04/17/17 08:12 Dose: 1 drop Artificial Tears (Artificial Tears) 0 gm EYEBOTH BEDTIME [facility] Aspirin (Halfprin) 81 mg PO DAILY [facility] Last Admin: 04/17/17 08:13 Dose: 81 mg Bisacodyl (Dulcolax) 5 mg PO DAILY PRN PRN Reason: Constipation Docusate Sodium (Colace) 100 mg PO BID PRN PRN Reason: Constipation Ezetimibe (Zetia) 10 mg PO DAILY [facility] Last Admin: 04/17/17 08:13 Dose: 10 mg Hydralazine HCl (Apresoline) 10 mg IVPUSH Q4H PRN PRN Reason: Hypertension Hydrochlorothiazide (Hydrochlorothiazide) 12.5 mg PO BIDDIURETIC [facility] Last Admin: 04/17/17 08:13 Dose: 12.5 mg Hydromorphone HCl (Dilaudid) 0.25 mg IVPUSH Q2H PRN PRN Reason: Pain (severe 7-10) Promethazine HCl 12.5 mg/ (Sodium Chloride) 50.5 mls @ 100 mls/hr IV Q6H PRN PRN Reason: Nausea/Vomiting Furosemide 100 mg/ Sodium (Chloride) 100 mls @ 2 mls/hr IV TITRATE [facility] PRN Reason: Protocol Stop: 04/18/17 21:00 Last Admin: 04/17/17 00:50 Dose: 2 mls/hr Lorazepam (Ativan) 0.25 mg IV Q6H PRN PRN Reason: Anxiety Lorazepam (Ativan) 2 mg IVPUSH Q4H PRN PRN Reason: Seizures Magnesium Sulfate (Pharmacy To Dose - Magnesium Replacement) 0 dose .XX ASDIRECTED PRN PRN Reason: RX TO WATCH MAG LEVELS Metoprolol Tartrate (Lopressor) 5 mg IVPUSH Q4H PRN PRN Reason: Tachycardia Metoprolol Tartrate (Lopressor) 25 mg PO BID [facility] Last Admin: 04/17/17 08:14 Dose: 25 mg Ondansetron HCl (Zofran) 4 mg IV Q6H PRN PRN Reason: Nausea/Vomiting Polyethylene Glycol (Miralax) 17 gm PO DAILY PRN PRN Reason: Constipation Potassium Chloride (Pharmacy To Dose - Potassium Replacement) 0 dose .XX ASDIRECTED PRN PRN Reason: RX TO WATCH K LEVELS Rosuvastatin Calcium (Crestor) 10 mg PO BEDTIME [facility] Senna/Docusate Sodium (Senna Plus) 1 tab PO BID PRN PRN Reason: Constipation Sertraline HCl (Zoloft) 75 mg PO DAILY [facility] Last Admin: 04/17/17 08:12 Dose: 75 mg Sodium Chloride (Saline Flush) 10 ml FLUSH ASDIRECTED PRN PRN Reason: Keep Vein Open Temazepam (Restoril) 7.5 mg PO BEDTIME PRN PRN Reason: Sleep Discontinued Medications Diphtheria/Tetanus/Acell Pertussis (Adacel) 0.5 ml IM .ONCE ONE Stop: 04/17/17 10:01 Furosemide (Lasix) 40 mg IVPUSH NOW ONE Stop: 04/16/17 22:14 Last Admin: 04/16/17 22:56 Dose: Not Given Furosemide (Lasix) 80 mg PO ONETIME ONE Stop: 04/16/17 22:18 Last Admin: 04/16/17 22:56 Dose: Not Given Furosemide (Lasix) Confirm Administered Dose 80 mg .ROUTE .STK-MED ONE Stop: 04/16/17 22:29 Last Admin: 04/16/17 22:56 Dose: Not Given Furosemide (Lasix) 80 mg IVPUSH NOW ONE Stop: 04/16/17 22:56 Last Admin: 04/16/17 22:56 Dose: 80 mg Hydrochlorothiazide (Hydrochlorothiazide) 12.5 mg PO NOW ONE Stop: 04/16/17 23:56 Last Admin: 04/17/17 00:50 Dose: 12.5 mg Metoprolol Tartrate (Lopressor) 50 mg PO BID [facility] Sodium Chloride (Saline Flush) 10 ml FLUSH ASDIRECTED PRN PRN Reason: Keep Vein Open Last Admin: 04/16/17 21:23 Dose: 10 ml - Exam Quality Assessment: Supplemental Oxygen (nasal canula) General: Alert, Oriented, Cooperative HEENT: Pupils Equal, Pupils Reactive, EOMI, Mucous Membr. Moist/Centuria Neck: Supple Lungs: Decreased Breath Sounds (right lower lobe and lower and upper left lobes) Cardiovascular: Regular Rate, Regular Rhythm, Murmurs GI/Abdominal Exam: Normal Bowel Sounds, Soft, Non-Tender, No Organomegaly, No Distention, No Mass (Female) Exam: Deferred Extremities: Normal Inspection, Leg Pain (left leg posterior tender to palpation ) Peripheral Pulses: 2+: Dorsalis Pedis (L), Dorsalis Pedis (R) Skin: Warm, Dry, Intact, Ecchymosis (left leg posterior and left lateral foot) Neurological: No New Focal Deficit Psy/Mental Status: Alert, Normal Affect, Normal Mood Physical Findings Comments:: She has decreased breath sounds in the right lung field and in the left lower lobe. There is a systolic heart murmur along the left sternal border. Her left leg is swollen compared to the right. It is tender to palpation. There is ecchymosis on the left calf as well as along the lateral left foot. Skin was warm and intact and pedal pulses were equal bilaterally. - Problem List Review Problem List Initiated/Reviewed/Updated: Yes - Assessment Assessment:: 1. Acute heart failure exacerbation 2. Pleural effusion 3. Minor trauma to left leg with swelling, ecchymosis, and tenderness 4. NSTEMI with elevated CK-MB and troponin I - Plan Plan:: Continue medications Continue supplemental oxygen Discuss thoracentesis with patient Re-check troponin I and CK MB levels Routine care <Gem Hicks T - Last Filed: 04/17/17 20:26> - General Info Admission Dx/Problem (Free Text): Acute Respiratory Failure Subjective Update: Follow Up Functional Status: Reports: Pain Controlled, Tolerating Diet, Urinating. Denies : New Symptoms - Review of Systems General: Denies: Fever, Weakness, Fatigue, Malaise Pulmonary: Reports: Shortness of Breath. Denies: Cough Cardiovascular: Denies: Chest Pain, Dyspnea on Exertion, Lightheadedness Gastrointestinal: Denies: Abdominal Pain, Nausea, Vomiting Musculoskeletal: Reports: Leg Pain, Other Skin: Reports: Bruising Neurological: Reports: Difficulty Walking, Weakness, Gait Disturbance Psychiatric: Denies: Depression, Anxiety, Agitation, Hallucinations Systems Review Comment:: No significant overnight or acute issues. She did not sleep well last night. However she breathes a little better than yesterday. She has no new complaints. - Patient Data Vitals - Most Recent: Last Vital Signs Temp 36.2 C 04/17/17 15:46 Pulse 64 04/17/17 15:47 Resp 18 04/17/17 15:46 BP 128/82 04/17/17 15:46 Pulse Ox 98 04/17/17 17:30 I&O - Last 24 Hours: Intake & Output 04/17/17 04/17/17 04/17/17 06:59 14:59 22:59 Intake Total 157 150 300 Output Total 1375 475 150 Balance -1218 -325 150 Lab Results Last 24 Hours: Laboratory Results - last 24 hr 04/17/17 04/17/17 04/17/17 Range/Units 00:10 02:05 06:00 WBC 4.14 (3.98-10.04) K/mm3 RBC 3.97 L (3.98-5.22) M/mm3 Hgb 10.2 L (11.2-15.7) gm/L Hct 38.1 (34.1-44.9) % MCV 96.0 H (79.4-94.8) fl MCH 25.7 (25.6-32.2) pg MCHC 26.8 L (32.2-35.5) g/dl RDW Std Deviation 61.3 H (36.4-46.3) fL Plt Count 162 L (182-369) K/mm3 MPV 12.4 H (9.4-12.3) fl Neut % (Auto) 69.4 (34.0-71.1) % Lymph % (Auto) 16.4 L (19.3-51.7) % [place] % (Auto) 12.8 H (4.7-12.5) % Eos % (Auto) 1.2 (0.7-5.8) Baso % (Auto) 0.2 (0.1-1.2) % Neut # (Auto) 2.87 (1.56-6.13) K/mm3 Lymph # (Auto) 0.68 L (1.18-3.74) K/mm3 [place] # (Auto) 0.53 H (0.24-0.36) K/mm3 Eos # (Auto) 0.05 (0.04-0.36) K/mm3 Baso # (Auto) 0.01 (0.01-0.08) K/mm3 Manual Slide Review Abnormal smear Puncture Site Rt brachial ABG pH 7.33 L (7.35-7.45) ABG pCO2 84.6 H* (35.0-45.0) mmHg ABG pO2 72.0 L (80.0-100.0) mmHg ABG HCO3 43.0 H (22.0-26.0) meq/L ABG O2 Saturation 91.2 L (96.0-97.0) % ABG Base Excess 14.5 H (-2-2.0) A-a Gradient 53 mmHg O2 Delivery Device Cannula Oxygen Flow Rate 4.0 FiO2 36.00 (21.00-100.00) % Sodium (136-145) mEq/L Potassium (3.5-5.1) mEq/L Chloride (98-107) mEq/L Carbon Dioxide (21-32) mEq/L Anion Gap (5-15) BUN (7-18) mg/dL Creatinine (0.55-1.02) mg/dL Est Cr Clr Drug Dosing mL/min Estimated GFR (MDRD) (>60) mL/min BUN/Creatinine Ratio (14-18) Glucose (83-115) mg/dL Calcium (8.5-10.1) mg/dL Magnesium (1.8-2.4) mg/dl CK-MB (CK-2) (0-3.6) ng/ml Troponin I (0.00-0.056) ng/mL NT-Pro-B Natriuret Pep (0-450) pg/mL MRSA (PCR) Negative 04/17/17 04/17/17 04/17/17 Range/Units 06:00 12:23 19:20 WBC (3.98-10.04) K/mm3 RBC (3.98-5.22) M/mm3 Hgb (11.2-15.7) gm/L Hct (34.1-44.9) % MCV (79.4-94.8) fl MCH (25.6-32.2) pg MCHC (32.2-35.5) g/dl RDW Std Deviation (36.4-46.3) fL Plt Count 149 L (182-369) K/mm3 MPV (9.4-12.3) fl Neut % (Auto) (34.0-71.1) % Lymph % (Auto) (19.3-51.7) % [place] % (Auto) (4.7-12.5) % Eos % (Auto) (0.7-5.8) Baso % (Auto) (0.1-1.2) % Neut # (Auto) (1.56-6.13) K/mm3 Lymph # (Auto) (1.18-3.74) K/mm3 [place] # (Auto) (0.24-0.36) K/mm3 Eos # (Auto) (0.04-0.36) K/mm3 Baso # (Auto) (0.01-0.08) K/mm3 Manual Slide Review Puncture Site ABG pH (7.35-7.45) ABG pCO2 (35.0-45.0) mmHg ABG pO2 (80.0-100.0) mmHg ABG HCO3 (22.0-26.0) meq/L ABG O2 Saturation (96.0-97.0) % ABG Base Excess (-2-2.0) A-a Gradient mmHg O2 Delivery Device Oxygen Flow Rate FiO2 (21.00-100.00) % Sodium 139 (136-145) mEq/L Potassium 4.8 (3.5-5.1) mEq/L Chloride 97 L (98-107) mEq/L Carbon Dioxide 43 H* (21-32) mEq/L Anion Gap 3.8 L (5-15) BUN 42 H (7-18) mg/dL Creatinine 1.9 H (0.55-1.02) mg/dL Est Cr Clr Drug Dosing 18.35 mL/min Estimated GFR (MDRD) 25 (>60) mL/min BUN/Creatinine Ratio 22.1 H (14-18) Glucose 88 (83-115) mg/dL Calcium 8.8 (8.5-10.1) mg/dL Magnesium 1.8 (1.8-2.4) mg/dl CK-MB (CK-2) 4.2 H 4.4 H (0-3.6) ng/ml Troponin I 0.085 H* 0.106 H* (0.00-0.056) ng/mL NT-Pro-B Natriuret Pep 49657 H (0-450) pg/mL MRSA (PCR) Med Orders - Current: Current Medications Acetaminophen (Tylenol) 650 mg PO Q4H PRN PRN Reason: Pain (Mild 1-3)/fever Hydrocodone Bitart/Acetaminophen ([place] 325-5 Mg) 1 tab PO Q4H PRN PRN Reason: Pain (moderate 4-6) Albuterol/Ipratropium (Duoneb 3.0-0.5 Mg/3 Ml) 3 ml NEB Q4H PRN PRN Reason: Shortness Of Breath/wheezing Artificial Tears (Isopto Tears 0.5% Ophth Soln) 0 ml EYEBOTH QID [facility] Last Admin: 04/17/17 16:17 Dose: 2 drop Artificial Tears (Artificial Tears) 0 gm EYEBOTH BEDTIME [facility] Aspirin (Halfprin) 81 mg PO DAILY [facility] Last Admin: 04/17/17 08:13 Dose: 81 mg Bisacodyl (Dulcolax) 5 mg PO DAILY PRN PRN Reason: Constipation Docusate Sodium (Colace) 100 mg PO BID PRN PRN Reason: Constipation Ezetimibe (Zetia) 10 mg PO DAILY [facility] Last Admin: 04/17/17 08:13 Dose: 10 mg Heparin Sodium (Porcine) (Heparin Sodium) 1,000 - 2,000 units IV ASDIRECTED PRN PRN Reason: SEE HEPARIN PROTOCOL Hydralazine HCl (Apresoline) 10 mg IVPUSH Q4H PRN PRN Reason: Hypertension Hydrochlorothiazide (Hydrochlorothiazide) 12.5 mg PO BIDDIURETIC [facility] Last Admin: 04/17/17 14:28 Dose: 12.5 mg Hydromorphone HCl (Dilaudid) 0.25 mg IVPUSH Q2H PRN PRN Reason: Pain (severe 7-10) Promethazine HCl 12.5 mg/ (Sodium Chloride) 50.5 mls @ 100 mls/hr IV Q6H PRN PRN Reason: Nausea/Vomiting Furosemide 100 mg/ Sodium (Chloride) 100 mls @ 2 mls/hr IV TITRATE [facility] PRN Reason: Protocol Stop: 04/18/17 21:00 Last Admin: 04/17/17 00:50 Dose: 2 mls/hr Heparin Sodium/Dextrose (Heparin 25,000 Units In D5w 500 Ml) 25,000 units in 500 mls @ 20 mls/hr IV TITRATE [facility] PRN Reason: Protocol Lorazepam (Ativan) 0.25 mg IV Q6H PRN PRN Reason: Anxiety Lorazepam (Ativan) 2 mg IVPUSH Q4H PRN PRN Reason: Seizures Magnesium Sulfate (Pharmacy To Dose - Magnesium Replacement) 0 dose .XX ASDIRECTED PRN PRN Reason: RX TO WATCH MAG LEVELS Metoprolol Tartrate (Lopressor) 5 mg IVPUSH Q4H PRN PRN Reason: Tachycardia Metoprolol Tartrate (Lopressor) 25 mg PO BID [facility] Last Admin: 04/17/17 08:14 Dose: 25 mg Ondansetron HCl (Zofran) 4 mg IV Q6H PRN PRN Reason: Nausea/Vomiting Polyethylene Glycol (Miralax) 17 gm PO DAILY PRN PRN Reason: Constipation Potassium Chloride (Pharmacy To Dose - Potassium Replacement) 0 dose .XX ASDIRECTED PRN PRN Reason: RX TO WATCH K LEVELS Rosuvastatin Calcium (Crestor) 10 mg PO BEDTIME [facility] Senna/Docusate Sodium (Senna Plus) 1 tab PO BID PRN PRN Reason: Constipation Sertraline HCl (Zoloft) 75 mg PO DAILY [facility] Last Admin: 04/17/17 08:12 Dose: 75 mg Sodium Chloride (Saline Flush) 10 ml FLUSH ASDIRECTED PRN PRN Reason: Keep Vein Open Temazepam (Restoril) 7.5 mg PO BEDTIME PRN PRN Reason: Sleep Discontinued Medications Diphtheria/Tetanus/Acell Pertussis (Adacel) 0.5 ml IM .ONCE ONE Stop: 04/17/17 10:01 Furosemide (Lasix) 40 mg IVPUSH NOW ONE Stop: 04/16/17 22:14 Last Admin: 04/16/17 22:56 Dose: Not Given Furosemide (Lasix) 80 mg PO ONETIME ONE Stop: 04/16/17 22:18 Last Admin: 04/16/17 22:56 Dose: Not Given Furosemide (Lasix) Confirm Administered Dose 80 mg .ROUTE .STK-MED ONE Stop: 04/16/17 22:29 Last Admin: 04/16/17 22:56 Dose: Not Given Furosemide (Lasix) 80 mg IVPUSH NOW ONE Stop: 04/16/17 22:56 Last Admin: 04/16/17 22:56 Dose: 80 mg Heparin Sodium (Porcine) (Heparin Sodium) 5,000 units IV ONETIME ONE Stop: 04/17/17 19:31 Hydrochlorothiazide (Hydrochlorothiazide) 12.5 mg PO NOW ONE Stop: 04/16/17 23:56 Last Admin: 04/17/17 00:50 Dose: 12.5 mg Metoprolol Tartrate (Lopressor) 50 mg PO BID [facility] Sodium Chloride (Saline Flush) 10 ml FLUSH ASDIRECTED PRN PRN Reason: Keep Vein Open Last Admin: 04/16/17 21:23 Dose: 10 ml - Exam Quality Assessment: Supplemental Oxygen General: Alert, Cooperative, No Acute Distress HEENT: Pupils Equal, Pupils Reactive, EOMI, Mucous Membr. Moist/Centuria Neck: Supple, No JVD Lungs: Normal Respiratory Effort, Decreased Breath Sounds Cardiovascular: Regular Rate, Regular Rhythm, Murmurs GI/Abdominal Exam: Normal Bowel Sounds, Soft, Non-Tender, No Organomegaly, No Distention (Female) Exam: Other (indwelling esquivel catheter) Extremities: Non-Tender, No Pedal Edema, Leg Pain. No: Normal Inspection Peripheral Pulses: 2+: Dorsalis Pedis (L), Dorsalis Pedis (R) Skin: Warm, Dry, Intact, Ecchymosis Neurological: No New Focal Deficit Psy/Mental Status: Alert, Normal Affect, Normal Mood - Problem List Review Problem List Initiated/Reviewed/Updated: Yes - My Orders Last 24 Hours: My Active Orders 04/17/17 00:24 Precautions [COMM] Routine 04/17/17 03:53 Vaccines to be Administered [RC] DAILY 04/17/17 04:53 Resuscitation Status Routine 04/17/17 09:00 Metoprolol Tartrate [Lopressor] 25 mg PO BID 04/17/17 10:59 CHRISTIANO Hose [Antiembolic Hose] [OM.PC] Routine 04/17/17 11:00 Antiembolic Devices [RC] PER UNIT ROUTINE 04/17/17 15:40 BIPAP [RT BiPAP/CPAP] [RC] ASDIRECTED 04/17/17 19:00 Heparin Sodium/D5W [Heparin 25,000 Units in D5W 500 ML] 25,000 units in 500 ml IV TITRATE 04/17/17 19:20 PTT,PARTIAL THROMBOPLSTIN TIME [COAG] Urgent 04/17/17 19:23 Heparin Sodium 1,000 - 2,000 units IV ASDIRECTED PRN 04/18/17 07:00 Chest wo Cont [CT] Routine 04/18/17 13:00 Guide Needle Biopsy [US] Stat - Assessment Assessment:: Assessment/Plan: Acute: End of Life Care - Daughter wants Comfort measures at this time - SW for d/c planning - Discontinue BIPAP, Heparin, Lasix drip, Discontinue Esquivel Catheter and Routine labs - Discontinue routine vitals check - Okay to continue oral home pills Respiratory Failure, Unchanged - Acute on Chronic - 2/2 Combined Hypercapneic and Hypoxemic - She has hx/o COPD and HF with Unknown EF - She has 4L NC baseline supplemental O2; she is now back to 6L NC - She was on 6L simple mask on presentation to ED sating at 79% - No longer tachypneic - Supplemental O2 and Routine RT Care - ABG: Ph 7.33, pCO2 of 84.6, pO2 of 72, HCO3 of 43 and O2 sat of 91.2% - CT scan in AM; daughter refused Heart Failure with Preserved EF 65-70% in October 2013, Worsening - Acute on Chronic - Likely 2/2 Volume Overload - We have no baseline 2D echo on file; [place] [address] ---> [address] (she received adequate diuretics; not sure why it went up) - CXR: Blunting of Costophrenic Angles; B/L Pleural Effusion; Pulmonary Vascular Congestion; Aortic Calcification and Possible Elevated Michael-diaphragm - Clinical signs of volume overload: Shortness of Breath requiring more amount of O2, Pleural Effusions and Peripheral Edema - Continue HF Protocol: IV lasix drip, oral hctz, salt/fluid restriction, daily weights and 2D echo-completed Bilateral Pleural Effusion-Pending final report from radiology - 08/18 with unknown EF - Lasix drip and will offer therapeutic thoracentesis in AM - CXR radiology report reads no pleural effusion - Consider CT scan in AM; daughter refused ROXI vs CKD - 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); 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) - BUN 38/Cr 1.9 --> 1.9 looks like chronic - Avoid Nephrotoxic agent if all possible - Renal U/S to r/o Obstructive Uropathy - careful balance with fluids; she is currently in heart failure NSTEMI - CE series all positive; patient had subacute IN - Repeat ekg shows no acute ST-T wave changes - Continue BB, ASA and Statin - Offered heparin therapy, PDOA refused Left Lower Extremity Edema - S/p Fall-recent - Associated with posterior calf hematoma - Duplex U/S negative for DVT - Monitor Resolved: Sinus Bradycardia, - HR is now in the 60s - Decreased home dose Metoprolol dose to 25 mg po BID - Already on Telemetry - Will put parameter on above medications Elevated D-Dimer - 3.13 - Likely 2/2 above; Cannot r/o PE - CTA contraindicated due to ROXI vs CKD - V/Q scan-low probability for PE and Duplex U/S negative for DVT Hyperkalemia - K 5.7 --> 4.8 - Likely 2/2 extracellular loss - She has received lasix - Monitor Chronic: HTN HLD CAD S/p Stent x2 GERD OA/DJD Anemia, Hgb is 9.9, she is at baseline - Plan Plan:: Plan: She is clinically worse Routine AM Labs Continue PT/OT/RT Fall Precautions CM/SW for d/c planning Additional orders as above Code status: DNR/DNI/Comfort Measures only Informed family she has a lot of things going on and it does look promising as of now. She is now sating in the 60s-70s at 6L NC. Her overall prognosis is guarded-poor. Expect clinical deterioration overnight.
--- NOTE | 2017-04-17 12:48 | NM ---
Ventilation/perfusion lung scan Technique: 2.0 mCi of technetium 99m MAA was given intravenously. Scintigraphic imaging then obtained over the chest. During the study, 39.8 mCi of technetium 99m DTPA was aerosolized and patient inhaled the mixture. Continued scintigraphic imaging was performed. Findings: Scattered matched defects are identified within the left lung and within the right lung base. No mismatch defects are seen. Findings have a low probability for pulmonary embolism. Impression: 1. Matched defects. Findings felt compatible with low probability for pulmonary embolism. Diagnostic code #3
--- NOTE | 2017-04-17 12:48 | US ---
Left lower extremity deep venous ultrasound: Duplex and color flow imaging was obtained of the left common femoral, greater saphenous, superficial femoral, popliteal, posterior tibial and peroneal veins. Right common femoral vein was also evaluated. Findings: Left peroneal vein was unable to be visualized. Distal superficial femoral and popliteal veins were unable to be compressed although these veins show normal phasic flow and augmentation. Other veins show normal phasic flow, augmentation and compression. Large complex mass identified within the left groin measuring 10.2 cm in greatest dimension. Impression: 1. Left groin mass measuring up to 10.2 cm. Differential includes abnormally enlarged lymph node versus hematoma. 2. No definite findings of deep venous thrombosis seen within the left lower extremity or within the right common femoral vein. Some portions of the left deep veins were not optimally seen as described above. Diagnostic code #3 I agree with preliminary report issued by [facility] ([facility] report finalized on 04/17/17, 12:33 AM Central Time)
--- NOTE | 2017-04-17 12:49 | CR ---
Chest: Portable view of the chest was obtained. Comparison: Previous chest x-ray of 12/22/13. Elevated right hemidiaphragm is seen. Heart is enlarged. Pulmonary vessels are slightly congested. Surgical clips are seen overlying both lung apices. Bony structures are osteopenic. Impression: 1. Chronic elevated right hemidiaphragm. 2. Cardiomegaly and mild pulmonary vascular congestion. Diagnostic code #3
--- NOTE | 2017-04-17 13:32 | US ---
Renal ultrasound: Multiple real-time images were obtained of both kidneys. Comparison: No previous renal ultrasound Findings: Left adnexal mass is identified within the pelvis. This measures about 10.5 cm in greatest size. Cystic areas are seen within this finding. Difficult to exclude ovarian neoplasm. Kidneys show no hydronephrosis. Left kidney shows 4 cysts measuring 4.7 cm, 2.1 cm, 1.1 cm and 1.3 cm in size. Right kidney shows no cysts. Resistivity indices are increased within both kidneys. No solid abnormality identified within either kidney. Treviño catheter noted within the bladder. Measurements: Right kidney: 8.2 cm in length Left kidney: 8.4 cm in length Impression: 1. 10.5 cm left adnexal mass, difficult to exclude ovarian neoplasm. 2. Elevated resistivity indices within both kidneys compatible with nonspecific medical renal disease. 3. Incidental cyst within the left kidney. Diagnostic code #9 Chart Writer called report to Dr. Kurt Rabago at 1:16 on 04/17/2017
[2017-04-17] MEDS ORDERED: Heparin Sodium/D5W 25,000 UNITS/500 ML BAG IV SCH (19:00)
[2017-04-17] MEDS ORDERED: Heparin Sodium 5,000 Units/ML Vial IV PRN (19:23)
[2017-04-17] MEDS ORDERED: Heparin Sodium 5,000 Units/ML Vial IV ONE (19:30)
[2017-04-17] MEDS ORDERED: LORazepam 2 MG/ML MDV IV PRN (20:29)
[2017-04-17] MEDS ORDERED: Morphine 2 MG/ML Syringe IVPUSH PRN (20:30)
[2017-04-17] MEDS ORDERED: Lanolin/Mineral Oil/Petrolatum Ophth Oint 3.5 GM Tube EYEBOTH SCH (21:00)
[2017-04-17] MEDS ORDERED: Rosuvastatin 10 MG Tab PO SCH (21:00)
[2017-04-18 00:21] VITALS: BP 131/98
[2017-04-18] MEDS: Hydrochlorothiazide 12.5 MG Cap PO SCH (05:16)
[2017-04-18] MEDS: Metoprolol Tartrate 50 MG Tab PO SCH ×2 (09:33)
[2017-04-18] MEDS: Hypromellose 0.5% Ophth Soln 15 ML Bottle EYEBOTH SCH ×2 (09:33→14:53)
[2017-04-18] MEDS: Aspirin 81 MG Tab.EC PO SCH (09:33)
[2017-04-18] MEDS: Sertraline 50 MG Tab PO SCH (09:33)
[2017-04-18] MEDS: Ezetimibe 10 MG Tab PO SCH (09:33)
--- NOTE | 2017-04-18 10:12 | PCM.DCSUM1 ---
Discharge Summary - Hospital Course Free Text/Narrative:: This is an 86-year-old elderly white female with past medical history of coronary artery disease started status post stent placement 2, hypertension, hyperlipidemia, GERD, osteoarthritis/DJD, and chronic anemia, who presents to the emergency department from local senior care with complaints of severe shortness of breath and difficulty laying flat. Her symptoms started today and has progressively gotten worse. She denies any chest pain, no cough, no wheezing , no fever or chills, and no other associated symptoms. Patient carries a history of COPD and chronic respiratory failure on 3-4 L supplemental O2. She denies any recent changes on her home medications. She has been compliant with her supplemental O2. Patient reports recent fall prior to left lower leg complaints. She reports edema, erythema, pain with palpation along with decrease range of motion. Her most recent hospitalization with similar presentation was way back in 2013. On presentation to the emergency department, she was on 6 L simple face mask and was found sating at 79%. She appears tachypneic with respiratory rate as high as 21. Her initial workup in the emergency department shows a CBC remarkable for RBC of 3.81, hemoglobin of 9.1, MCV of 96.6, MCHC of 26.9, RDW of 61, platelet of 159, neutrophils of 71.6%, lymphocytes of 12.8%, and monocytes of 14.1%. Her d-dimer level is at 3.13. Her chemistry is remarkable for potassium 5.7, carbon dioxide of 43, anion gap of 4.7, BUN of 38, creatinine of 1.9, troponin 1 of 0.064, [place] [address], total protein of 6.3, and albumin of 2.9. Her chest x-ray shows blunting of costophrenic angles, pulmonary congestion, bilateral pleural effusion, and significant aortic calcification. Patient is being admitted primarily for medical management of acute on chronic respiratory failure and acute on chronic heart failure. She is DNR/DNI on admission. Course of hospital stay was with troponins trending up consistent with NSTEMI. VQ scan was negative or nonsuggestive for PE. BNP continued to trend up as well. She was started on lasix drip for CHF exacerbation. Renal ultrasound was obtained for acute kidney failure with findings of 10.2cm adenexal mass, cannot r/o malignancy along with findings of mild medical renal disease. She continued to have low oxygen saturations, was placed on Bipap but did not tolerate the mask well at all. Echo was obtained with EF of 60-65%. Family came in the day following admission. Dr. Hicks reviewed case and study findings/options, including transfer with DPOA who then made decision for comfort care only along with resuming home meds, no Bipap as patient does not tolerate the mask well at all. Family is considering Hospice care upon discharge and once patient is settled in back at the [facility]. She will be discharged today to [facility], fup with PCP, Dr. Lee to further discuss Hospice care as life expectancy will be <6 months at this time. - Discharge Data Discharge Date: 04/18/17 (admit date 04/17/17) Discharge Disposition: DC/Tfer to SNF 03 Condition: Good - Discharge Diagnosis/Problem(s) (1) NSTEMI (non-ST elevated myocardial infarction) SNOMED Code(s): 298318693 ICD Code: I21.4 - NON-ST ELEVATION (NSTEMI) MYOCARDIAL INFARCTION Status: Acute Priority: High Current Visit: Yes (2) CHF, Congestive heart failure SNOMED Code(s): 34827581 ICD Code: I50.9 - HEART FAILURE, UNSPECIFIED Status: Acute Priority: High Current Visit: Yes (3) Carbon dioxide retention SNOMED Code(s): 30574155 ICD Code: E87.2 - ACIDOSIS Status: Chronic Priority: High Current Visit : Yes (4) Chronic renal failure SNOMED Code(s): 16372755 ICD Code: N18.9 - CHRONIC KIDNEY DISEASE, UNSPECIFIED Status: Chronic Priority: High Current Visit: Yes Qualifiers: Chronic kidney disease stage: unspecified stage Qualified Code(s): N18.9 - Chronic kidney disease, unspecified (5) Hyperkalemia SNOMED Code(s): 95215874 ICD Code: E87.5 - HYPERKALEMIA Status: Resolved Priority: High Current Visit: Yes (6) Hypoxemia SNOMED Code(s): 465322890 ICD Code: R09.02 - HYPOXEMIA Status: Acute Priority: High Current Visit : Yes (7) COPD (chronic obstructive pulmonary disease) SNOMED Code(s): 50752563 ICD Code: J44.9 - CHRONIC OBSTRUCTIVE PULMONARY DISEASE, UNSPECIFIED Status : Chronic Priority: High Current Visit: Yes Qualifiers: COPD type: unspecified COPD Qualified Code(s): J44.9 - Chronic obstructive pulmonary disease, unspecified - Patient Summary/Data Operative Procedure(s) Performed: None Complications: None Consults: Consultations 04/17/17 20:28 Consult to End of Life Care [Consult to Palliative Care] [CONS] Routine Labs Pending at D/C: None Recommended Follow-up Testing/Procedures: Patient discharged on Comfort Measures; plans to start Hospice care or consider Hospice care upon return to [facility] Follow up with PCP. Dr. Lee after discharge. Planned Operative Procedure(s) after DC: None Hospital Course: As above - Patient Instructions Diet: Heart Healthy Diet Activity: As Tolerated Driving: Do Not Drive Showering/Bathing: May Shower Notify Provider of: Fever, Increased Pain, Swelling and Redness, Nausea and/or Vomiting - Discharge Plan Prescriptions/Med Rec: Albuterol/Ipratropium [DuoNeb 3.0-0.5 MG/3 ML] 3 ml NEB Q4H PRN #1 box PRN Reason: SOB/Wheezing LORazepam [Ativan] 0.5 mg PO Q4H PRN #30 tablet PRN Reason: restlessness Morphine [Morphine 10 MG/5 ML] 5 mg PO Q2H #120 ml Home Medications: Home Meds Aspirin [Adult Low Dose Aspirin EC] 81 mg PO DAILY 12/21/13 [History] Ezetimibe [Zetia] 10 mg PO DAILY 12/21/13 [History] Furosemide [Lasix] 40 mg PO DAILY 12/21/13 [History] Metoprolol Tartrate 50 mg PO BID 12/21/13 [History] Sulfamethoxazole/Trimethoprim [Sulfamethoxazole-Tmp Ss Tablet] 1 each PO BID 01/27 [History] atorvaSTATin [Lipitor] 40 mg PO BEDTIME 12/21/13 [History] Lisinopril 5 mg PO DAILY #30 tablet 12/23/13 [Rx] Sertraline [Zoloft] 75 mg PO DAILY 06/03/15 [History] Acetaminophen [Acetaminophen Extra Strength] 500 mg PO Q4H PRN 04/16/17 [History ] Carboxymethylcellulose Sodium [Refresh Tears] 2 drop EYEBOTH QID 04/16/17 [ History] Cyanocobalamin (Vitamin B-12) [Cyanocobalamin Injection] 1,000 mcg IM WEEKLY 08/02 [History] Docusate Sodium/Sennosides [Senna Plus] 1 tab PO DAILY PRN 04/16/17 [History] Fish Oil/[place]-3 Fatty Acids [Fish Oil 1,000 MG] 1,000 mg PO BID 04/16/17 [ History] Mineral Oil/Petrolatum,White [Genteal Pm Ointment] 1 dose EYEBOTH BEDTIME [History] Ondansetron [Zofran ODT] 4 mg PO Q8H PRN 04/16/17 [History] Vit C/E/Zn/Coppr/Lutein/Zeaxan [Preservision Areds 2 Softgel] 1 cap PO BID 04/16 [History] Albuterol/Ipratropium [DuoNeb 3.0-0.5 MG/3 ML] 3 ml NEB Q4H PRN #1 box 04/18/17 [Rx] LORazepam [Ativan] 0.5 mg PO Q4H PRN #30 tablet 04/18/17 [Rx] Morphine [Morphine 10 MG/5 ML] 5 mg PO Q2H #120 ml 04/18/17 [Rx] Patient Handouts: Chronic Obstructive Pulmonary Disease Exacerbation, Easy-to- Read, Oxygen Use at Home, Hypertension, [id number], Heart Attack, [id number] , Heart Failure, [id number] Referrals: Thom Lee MD [Primary Care Provider] - - Discharge Summary/Plan Comment DC Time >30 min.: Yes (40 min) - General Info Date of Service: 04/18/17 Admission Dx/Problem (Free Text: Acute Respiratory Failure Patient seen this morning. She is restless initially but with changing to [place] for supplemental oxygen she improves per nursing. She refuses PO meds this morning per nursing. She is comfort cares and will plan to DC back to [facility] today for plans to start Hospice care at that time. Functional Status: Reports: Tolerating Diet (requested breakfast this morning as she is "hungry"), Urinating - Review of Systems General: Reports: Weakness, Fatigue, Malaise HEENT: Reports: No Symptoms Pulmonary: Reports: Shortness of Breath Cardiovascular: Reports: Dyspnea on Exertion Gastrointestinal: Reports: No Symptoms Neurological: Reports: Confusion (intermittent; baseline mild dementia) - Patient Data Vitals - Most Recent: Last Vital Signs Temp 97.5 F 04/17/17 23:40 Pulse 69 04/17/17 23:40 Resp 20 04/17/17 23:40 BP 131/98 H 04/17/17 23:40 Pulse Ox 90 L 04/17/17 23:40 Weight - Most Recent: 190 lb I&O - Last 24 hours: Intake & Output 04/17/17 04/18/17 04/18/17 22:59 06:59 14:59 Intake Total 323 235 Output Total 280 1200 Balance 43 -965 Lab Results - Last 24 hrs: Laboratory Results - last 24 hr 04/17/17 04/17/17 04/17/17 Range/Units 12:23 19:20 19:20 Plt Count 149 L (182-369) K/mm3 APTT 28 (22-36) SECONDS CK-MB (CK-2) 4.4 H (0-3.6) ng/ml Troponin I 0.106 H* (0.00-0.056) ng/mL Med Orders - Current: Current Medications Acetaminophen (Tylenol) 650 mg PO Q4H PRN PRN Reason: Pain (Mild 1-3)/fever Hydrocodone Bitart/Acetaminophen ([place] 325-5 Mg) 1 tab PO Q4H PRN PRN Reason: Pain (moderate 4-6) Albuterol/Ipratropium (Duoneb 3.0-0.5 Mg/3 Ml) 3 ml NEB Q4H PRN PRN Reason: Shortness Of Breath/wheezing Artificial Tears (Isopto Tears 0.5% Ophth Soln) 0 ml EYEBOTH QID [facility], [facility] Last Admin: 04/18/17 09:33 Dose: Not Given Artificial Tears (Artificial Tears) 0 gm EYEBOTH BEDTIME [facility], [facility] Last Admin: 04/17/17 20:47 Dose: 1 applic Aspirin (Halfprin) 81 mg PO DAILY [facility], [facility] Last Admin: 04/18/17 09:33 Dose: Not Given Bisacodyl (Dulcolax) 5 mg PO DAILY PRN PRN Reason: Constipation Docusate Sodium (Colace) 100 mg PO BID PRN PRN Reason: Constipation Ezetimibe (Zetia) 10 mg PO DAILY [facility] Last Admin: 04/18/17 09:33 Dose: Not Given Hydralazine HCl (Apresoline) 10 mg IVPUSH Q4H PRN PRN Reason: Hypertension Hydrochlorothiazide (Hydrochlorothiazide) 12.5 mg PO BIDDIURETIC [facility], [facility] Last Admin: 04/18/17 05:16 Dose: Not Given Hydromorphone HCl (Dilaudid) 0.25 mg IVPUSH Q2H PRN PRN Reason: Pain (severe 7-10) Promethazine HCl 12.5 mg/ (Sodium Chloride) 50.5 mls @ 100 mls/hr IV Q6H PRN PRN Reason: Nausea/Vomiting Lorazepam (Ativan) 2 mg IVPUSH Q4H PRN PRN Reason: Seizures Lorazepam (Ativan) 0.5 mg IV Q4H PRN PRN Reason: Anxiety Metoprolol Tartrate (Lopressor) 5 mg IVPUSH Q4H PRN PRN Reason: Tachycardia Metoprolol Tartrate (Lopressor) 25 mg PO BID [facility] Last Admin: 04/18/17 09:33 Dose: Not Given Morphine Sulfate (Morphine) 1 mg IVPUSH Q4H PRN PRN Reason: Other Ondansetron HCl (Zofran) 4 mg IV Q6H PRN PRN Reason: Nausea/Vomiting Polyethylene Glycol (Miralax) 17 gm PO DAILY PRN PRN Reason: Constipation Rosuvastatin Calcium (Crestor) 10 mg PO BEDTIME [facility] Last Admin: 04/18/17 00:00 Dose: Not Given Senna/Docusate Sodium (Senna Plus) 1 tab PO BID PRN PRN Reason: Constipation Sertraline HCl (Zoloft) 75 mg PO DAILY [facility] Last Admin: 04/18/17 09:33 Dose: Not Given Sodium Chloride (Saline Flush) 10 ml FLUSH ASDIRECTED PRN PRN Reason: Keep Vein Open Temazepam (Restoril) 7.5 mg PO BEDTIME PRN PRN Reason: Sleep Discontinued Medications Diphtheria/Tetanus/Acell Pertussis (Adacel) 0.5 ml IM .ONCE ONE Stop: 04/17/17 10:01 Furosemide (Lasix) 40 mg IVPUSH NOW ONE Stop: 04/16/17 22:14 Last Admin: 04/16/17 22:56 Dose: Not Given Furosemide (Lasix) 80 mg PO ONETIME ONE Stop: 04/16/17 22:18 Last Admin: 04/16/17 22:56 Dose: Not Given Furosemide (Lasix) Confirm Administered Dose 80 mg .ROUTE .STK-MED ONE Stop: 04/16/17 22:29 Last Admin: 04/16/17 22:56 Dose: Not Given Furosemide (Lasix) 80 mg IVPUSH NOW ONE Stop: 04/16/17 22:56 Last Admin: 04/16/17 22:56 Dose: 80 mg Heparin Sodium (Porcine) (Heparin Sodium) 5,000 units IV ONETIME ONE Stop: 04/17/17 19:31 Last Admin: 04/17/17 20:00 Dose: Not Given Heparin Sodium (Porcine) (Heparin Sodium) 1,000 - 2,000 units IV ASDIRECTED PRN PRN Reason: SEE HEPARIN PROTOCOL Hydrochlorothiazide (Hydrochlorothiazide) 12.5 mg PO NOW ONE Stop: 04/16/17 23:56 Last Admin: 04/17/17 00:50 Dose: 12.5 mg Furosemide 100 mg/ Sodium (Chloride) 100 mls @ 2 mls/hr IV TITRATE BEBO PRN Reason: Protocol Stop: 04/18/17 21:00 Last Admin: 04/17/17 00:50 Dose: 2 mls/hr Heparin Sodium/Dextrose (Heparin 25,000 Units In D5w 500 Ml) 25,000 units in 500 mls @ 20 mls/hr IV TITRATE BEBO PRN Reason: Protocol Lorazepam (Ativan) 0.25 mg IV Q6H PRN PRN Reason: Anxiety Magnesium Sulfate (Pharmacy To Dose - Magnesium Replacement) 0 dose .XX ASDIRECTED PRN PRN Reason: RX TO WATCH MAG LEVELS Metoprolol Tartrate (Lopressor) 50 mg PO BID BEBO Potassium Chloride (Pharmacy To Dose - Potassium Replacement) 0 dose .XX ASDIRECTED PRN PRN Reason: RX TO WATCH K LEVELS Sodium Chloride (Saline Flush) 10 ml FLUSH ASDIRECTED PRN PRN Reason: Keep Vein Open Last Admin: 04/16/17 21:23 Dose: 10 ml - Exam Quality Assessment: Reports: Supplemental Oxygen General: Reports: Alert, Cooperative HEENT: Reports: Pupils Equal, Mucous Membr. Moist/[place] Neck: Reports: Supple Lungs: Reports: Decreased Breath Sounds, Rales, Wheezing Cardiovascular: Reports: Murmurs GI/Abdominal Exam: Normal Bowel Sounds, Soft, Non-Tender (Female) Exam: Deferred Rectal (Female) Exam: Deferred Neurological: Reports: Other (baseline mild dementia) Psy/Mental Status: Reports: Alert *Q Meaningful Use (DIS) - VTE *Q VTE Criteria *Q: - Stroke *Q Stroke Criteria *Q: - AMI *Q AMI Criteria *Q:
--- NOTE | 2017-04-18 14:55 | PCM.SN ---
- Free Text/Narrative Note: [facility] called stating they do not carry liquid morphine and called the Custodial also do not have liquid morphine as I had rx'd for discharge as were planning to transition patient to comfort cares/hospice care once arrived to retirement. As patient was taking oral pain medications here, will rx Hydrocodone for now. Pharmacy will come picker / packer rx later today. Call placed to [facility] with Verbal orders to dc liquid morphine, hydrocodone 5/325 1-2 PO Q 4 hrs PRN #30 no refills.
== END 2017-04-18 13:30 | DRG 280 ==
LOC: SUPCPDRO 20:40 → JD.ED 20:40 → JD.MS 04-17 00:01
PROVIDERS: ADMIT Internal Medicine; ATTEND Internal Medicine
DX: I13.0 Hypertensive heart and chronic kidney disease with heart failure and stage 1 through stage 4 chronic kidney disease, or unspecified chronic kidney disease (principal); I50.33 Acute on chronic diastolic (congestive) heart failure; N18.9 Chronic kidney disease, unspecified; I21.4 Non-ST elevation (NSTEMI) myocardial infarction; J96.22 Acute and chronic respiratory failure with hypercapnia; R09.02 Hypoxemia; J96.21 Acute and chronic respiratory failure with hypoxia; E78.00 Pure hypercholesterolemia, unspecified; N17.9 Acute kidney failure, unspecified; F32.9 Major depressive disorder, single episode, unspecified; F41.9 Anxiety disorder, unspecified; Z88.8 Allergy status to other drugs, medicaments and biological substances; Z91.041 Radiographic dye allergy status; Z79.899 Other long term (current) drug therapy; N18.4 Chronic kidney disease, stage 4 (severe); E87.2 Acidosis; E11.22 Type 2 diabetes mellitus with diabetic chronic kidney disease; Z87.891 Personal history of nicotine dependence; J44.9 Chronic obstructive pulmonary disease, unspecified; E87.5 Hyperkalemia; W19.XXXA Unspecified fall, initial encounter; R60.0 Localized edema; R00.1 Bradycardia, unspecified; E78.5 Hyperlipidemia, unspecified; I25.10 Atherosclerotic heart disease of native coronary artery without angina pectoris; K21.9 Gastro-esophageal reflux disease without esophagitis; M19.90 Unspecified osteoarthritis, unspecified site; D64.9 Anemia, unspecified; Z66 Do not resuscitate; N83.9 Noninflammatory disorder of ovary, fallopian tube and broad ligament, unspecified; Z51.5 Encounter for palliative care; Z95.5 Presence of coronary angioplasty implant and graft
CPT/HCPCS: 36415; 36600; 51702; 71010; 80053; 83880; 84484; 85025; 85379; 85610; 85730; 86140; 93005; 93971; 96374; 99285; J7050; 76770; 76770-26; 78582; 78582-26; 80048; 82553; 82803; 83735; 85049; 87641; 93306; 94660; 94761; 97110-GP; 97162-GP; 97167-GO; 97530-GO; 99223; 99239; A9270; A9270-GY; A9540; J1940; J7030